=== PATIENT | female | born 1965 | race Caucasian/White ===

== ENCOUNTER 2016-11-02 18:06 | Inpatient (IN) | payer OTHER ==
[~2016-11-02] VITALS: Ht 154.9 cm; Wt 65.4 kg
[~2016-11-02 18:06] MED LIST: ASC500 PO; BUTA1CAP PO; CIPR500T4 PO; FER325 PO; GLIP5TAB13 PO; NIFE60TA60 PO; NITR-58 PO; ONDA4TAB35 PO; SITA100T8 PO
[2016-11-02 22:30] VITALS: BP 157/73; PULSE 77; RESP 18
[2016-11-02 22:42] VITALS: PULSE 80
[2016-11-02] MEDS ORDERED: hydrALAzine 20 MG INJ IV PRN (23:00)
[2016-11-02] MEDS ORDERED: ALBUTEROL/IPRATROPIUM (NEB) 3 ML AMP HHN PRN (23:00)
[2016-11-02] MEDS ORDERED: GLUCAGON 1 MG INJ IM PRN (23:30)
[2016-11-02] MEDS ORDERED: DEXTROSE 50% 50 ML SYRINGE IV PRN ×2 (23:30)
[2016-11-02] MEDS ORDERED: GLUCOSE GEL 15 GRAM TUBE PO PRN ×2 (23:30)
[2016-11-02] MEDS ORDERED: GLUCOSE GEL 15 GRAM TUBE BUCCAL PRN (23:30)
[2016-11-03] VITALS (14 sets, daily range): BP systolic 145–174; BP diastolic 70–90; PULSE 66–83; RESP 16–20
[2016-11-03 01:40] LABS: BASOPHILS % 0.3 % (0.0-2.0); EOSINOPHILS # 0.4 10^3/ul (0.0-0.5); EOSINOPHILS % 4.4 % (0.0-7.0); HEMOGLOBIN 8.2 g/dl (12.0-16.0); LYMPHOCYTES % 23.2 % (15.0-51.0); MEAN CORPUSCULAR HEMOGLOBIN 31.9 pg (29.0-33.0); MEAN CORPUSCULAR HGB CONC 32.9 g/dl (32.0-37.0); MEAN CORPUSCULAR VOLUME 97.2 fl (82.0-101.0); MEAN PLATELET VOLUME 9.7 fl (7.4-10.4); MONOCYTE # 0.8 10^3/ul (0.3-0.9); MONOCYTES % 9.7 % (0.0-11.0); NEUTROPHIL # 5.4 10^3/ul (1.6-7.5); NEUTROPHILS % 62.4 % (39.0-77.0); PLATELET COUNT 220 10^3/UL (140-440); RED BLOOD COUNT 2.57 10^6/ul (4.20-5.40); RED CELL DISTRIBUTION WIDTH 13.3 % (11.5-14.5); UNCORRECTED WBC 8.6 10^3/ul (4.8-10.8); WHITE BLOOD COUNT 8.6 10^3/ul (4.8-10.8)
[2016-11-03 01:43] LABS: POTASSIUM 4.9 mmol/L (3.5-5.1)
[2016-11-03 01:45] LABS: CREATININE 3.65 mg/dl (0.44-1.00)
[2016-11-03 01:46] LABS: ALBUMIN/GLOBULIN RATIO 0.9; CALCIUM 8.2 mg/dl (8.4-10.2); CHOL/HDL RATIO 2.7 RATIO; TOTAL PROTEIN 6.3 g/dl (6.1-8.1)
[2016-11-03 01:48] LABS: CONDITION 1
[2016-11-03] MEDS: FUROSEMIDE 20 MG INJ IV SCH (06:09)
[2016-11-03] MEDS: INSULIN ASPART [NOVOLOG] 3 ML PEN SC SCH ×4 (08:00→21:30)
--- NOTE | 2016-11-03 10:27 | HP ---
DATE OF ADMISSION: 11/02/2016 TIME SEEN: 2300. CHIEF COMPLAINT: Shortness of breath. HISTORY OF PRESENT ILLNESS: Patient presented at [facility] on 10/31/2016 and has be en treated for CHF exacerbation. The patient was transferred here for continued care because of ins urance reasons. The patient denied any chest pain, fever, chills, nausea, vomiting. When the patient presented here to the hospital, blood pressure 157/73, heart rate 77, respiratory r ate 18, temperature 99, oxygen saturation 97% on 5 liters oxygen. Laboratory value shows a hemoglobin of 8.2, creatinine 3.65, BUN 59, hemoglobin ____ . REVIEW OF SYSTEMS: A 12-point review of systems was performed and is negative except mentioned in th e HPI. PAST MEDICAL HISTORY: Per HPI. SOCIAL HISTORY: Denied a history of tobacco, alcohol or illicit drug use. ALLERGIES: NO KNOWN DRUG ALLERGIES. HOME MEDICATIONS: 1. Cipro. 2. Nitrofurantoin. 3. Ferrous sulfate. 4. Nifedipine. 5. Butalbital/acetaminophen/caffeine. 6. Zofran. 7. Glipizide. 8. Januvia. 9. Vitamin C. PHYSICAL EXAMINATION: VITAL SIGNS: Blood pressure 157/73, heart rate 97, respiratory rate 18, temperature 99, oxygen satu ration 97% on 5 liters. GENERAL: The patient appears sleepy but arousable with mild respiratory distress. HEENT: No obvious head deformity. Pupils are reactive to light. Extraocular muscles intact. CARDIOVASCULAR: Regular rate and rhythm. No extra sounds. LUNGS: Clear. LABORATORY DATA: Hemoglobin 8.2, BUN 59, creatinine 0.65, albumin 3. Otherwise, CBC and CMP are wi thin acceptable range. IMPRESSION: 1. Congestive heart failure exacerbation. 2. Chronic kidney disease. 3. Hypertension. 4. Diabetes. PLAN: Continue telemetry monitoring. We will continue diuresis with Lasix. Strict ins and outs an d follow up urine output closely. We will place a nephrology consult. We will obtain a 2D echo and a cardiology consult as well. She will be on insulin for diabetes. Will check A1c, fasting lipid panel in the morning. Will continue oxygen and will provide treatment with bronchodilators as neede d. Further workup and management per clinical course. Dictated By: LACHELLE ORTEGA/COLETTE Conf#: [id number] [facility]#: [id number]
[2016-11-03 13:22] LABS: IRON 29 ug/dl (35-150)
[2016-11-03 13:31] LABS: TOTAL IRON BINDING CAPACITY 200 ug/dl (241-421)
[2016-11-03 13:37] LABS: TROPONIN-I 0.333 ng/ml (0.00-0.12)
[2016-11-03 13:53] LABS: THYROID STIMULATING HORMONE 1.58 MIU/L (0.465-4.680)
--- NOTE | 2016-11-03 15:06 | PN ---
Date/Time of Note Date/Time of Note DATE: 11/03/16 TIME: 14:54 Assessment/Plan VTE Prophylaxis VTE Prophylaxis Intervention: heparin Lines/Catheters IV Catheter Type (from Nrs): Saline Lock Urinary Cath still in place: No Assessment/Plan Assessment/Plan 1. Congestive heart failure, hypertensive, r/o ischemia, follow up with Echo and cardiology consult 2. Hypertension, on procardia, add coreg 3. Chronic kidney disease, stage 4, follow up with BMP 4. Diabete mellitus, on ISS, chest HbA1c 5. Normocytic anemia, likely CKD related, follow up with CBC Subjective 24 Hr Interval Summary Free Text/Dictation less SOB today. No chest pain Exam/Review of Systems Vital Signs Vitals Vital Signs Date Time Temp Pulse Resp B/P Pulse Ox O2 Delivery O2 Flow Rate FiO2 11/03/16 12:38 74 11/03/16 12:11 99.7 18 174/80 96 11/03/16 09:15 Nasal Cannula 5.0 Intake and Output 11/02/16 11/02/16 11/03/16 15:00 23:00 07:00 Intake Total 300 ml Output Total 350 ml Balance -50 ml Exam Constitutional: alert, oriented, well developed Psych: nl mood/affect, no complaints Head: atraumatic, normocephalic Eyes: EOMI, PERRL, nl conjunctiva, nl lids ENMT: nl external ears & nose, nl lips & teeth, nl nasal mucosa & septum Neck: non-tender, supple Respiratory: clear to auscultation, normal air movement, No congested cough, No crackles/rales, No diminished breath sounds, No intercostal retraction, No labored breathing, No respirations, No tactile fremitus, No wheezing Cardiovascular: nl pulses, regular rate and rhythm, No S3, No S4, No bruits, No diastolic murmur, No edema, No gallop, No irregular rhythm, No jugular venous distention (JVD), No murmurs/extra sounds, No rub, No systolic murmur Gastrointestinal: nl liver, spleen, non-tender, soft, No ascites, No bowel sounds, No distended, No firm, No hepatomegaly, No mass , No rebound or guarding, No splenomegaly, No surgical scars, No tender Musculoskeletal: nl extremities to inspection Extremities: normal pulses, No calf tenderness, No clubbing, No cyanosis, No edema, No palpable cord, No pitting pedal edema, No tenderness Neurological: ORIGINATION SPECIALIST II-XII intact, nl mental status, nl speech, nl strength Skin: nl turgor, rash or lesions Lymph: nl lymph nodes Results Result Diagram: 11/03/16 0045 11/03/16 0045 Results 24 hrs Laboratory Tests Test 11/03/16 00:45 11/03/16 08:13 11/03/16 12:10 11/03/16 12:50 Alanine Aminotransferase (ALT/SGPT) 38 Albumin 3.0 L Albumin/Globulin Ratio 0.90 Alkaline Phosphatase 99 Anion Gap 17 H Aspartate Amino Transf (AST/SGOT) 29 Basophils # 0.0 Basophils % 0.3 Blood Urea Nitrogen 59 H Calcium Level 8.2 L Carbon Dioxide Level 22 Chloride Level 107 Cholesterol Level 144 Cholesterol/HDL Ratio 2.7 Creatinine 3.65 H Direct Bilirubin 0.00 Eosinophils # 0.4 Eosinophils % 4.4 Globulin 3.30 H Glucose Level 185 HDL Cholesterol 53 Hematocrit 25.0 L Hemoglobin 8.2 L Hemoglobin A1c 6.5 H Indirect Bilirubin 0.0 LDL Cholesterol, Calculated 70 Lymphocytes # 2.0 Lymphocytes % 23.2 Mean Corpuscular Hemoglobin 31.9 Mean Corpuscular Hemoglobin Concent 32.9 Mean Corpuscular Volume 97.2 Mean Platelet Volume 9.7 Monocytes # 0.8 Monocytes % 9.7 Neutrophils # 5.4 Neutrophils % 62.4 Nucleated Red Blood Cells # 0.0 Nucleated Red Blood Cells % 0.0 Platelet Count 220 # Potassium Level 4.9 Red Blood Count 2.57 #L Red Cell Distribution Width 13.3 Sodium Level 141 Total Bilirubin 0.0 L Total Protein 6.3 Triglycerides Level 107 White Blood Count 8.6 # Bedside Glucose 140 193 B-Type Natriuretic Peptide 32789 H Ferritin 213.0 Iron Level 29 L Percent Iron Saturation 15 L Thyroid Stimulating Hormone (TSH) 1.580 Total Iron Binding Capacity 200 L Troponin I 0.333 *H Medications Medications Current Medications Furosemide (Lasix) 20 mg DAILY@06 IV Last administered on 11/03/16t 06:09; Admin Dose 20 MG; Start 11/03/16 at 06:00 Acetaminophen (Tylenol Tab) 650 mg Q4H PRN PO PAIN AND OR ELEVATED TEMP; Start 11/02/16 at 23:00 Hydralazine HCl (Apresoline) 10 mg Q4H PRN IV ELEVATED SYSTOLIC BP Last administered on 11/03/16 12:48; Admin Dose 10 MG; Start 11/02/16 at 23:00 Miscellaneous Information 1 ea NOTE XX ; Start 11/02/16 at 23:30 Glucose (Glutose) 15 gm Q15M PRN PO DECREASED GLUCOSE; Start 11/02/16 at 23:30 Glucose (Glutose) 22.5 gm Q15M PRN PO DECREASED GLUCOSE; Start 11/02/16 at 23:30 Dextrose (D50w Syringe) 25 ml Q15M PRN IV DECREASED GLUCOSE; Start 11/02/16 at 23:30 Dextrose (D50w Syringe) 50 ml Q15M PRN IV DECREASED GLUCOSE; Start 11/02/16 at 23:30 Glucagon (Glucagen) 1 mg Q15M PRN IM DECREASED GLUCOSE; Start 11/02/16 at 23:30 Glucose (Glutose) 15 gm Q15M PRN BUCCAL DECREASED GLUCOSE; Start 11/02/16 at 23: 30 Clonidine (Catapres) 0.1 mg Q6H PRN PO SBP >160; Start 11/03/16 at 13:30 Nifedipine (Procardia Xl) 90 mg DAILY PO ; Start 11/03/16 at 14:30 BRIANA SALEH MD Nov 03, 2016 15:04
[2016-11-03] MEDS: NIFEdipine (XL) 90 MG TAB PO SCH (15:30)
--- NOTE | 2016-11-03 15:32 | RADRPT ---
PROCEDURE: XR Chest. CLINICAL INDICATION: Pleural effusion TECHNIQUE: Chest PA and lateral. COMPARISON: 01/26/2016 FINDINGS: The mediastinal structures are unremarkable. The heart is normal in size and configuration. The pu lmonary vascularity is normal. There is bibasilar subsegmental atelectasis. There are small to mod erate-sized bilateral pleural effusions. The axial skeleton is unremarkable. IMPRESSION: Bibasilar subsegmental atelectasis Small to moderate-sized bilateral pleural effusions RPTAT: HGDB .Maikol Morales MD, MD Date Time Electronically viewed and signed by .Maikol Morales MD, on 11/03/2016 15:32 .B/
[2016-11-03] MEDS: HEPARIN 5,000 UNIT/0.5 ML SYG SC SCH ×2 (15:36→21:29)
[2016-11-03] MEDS: ASPIRIN 325 MG TAB PO SCH (17:05)
--- NOTE | 2016-11-03 17:30 | RADRPT ---
Echocardiogram Report Patient Name: LORELEI SANDOVAL Gender: Female Date: 1965 Study Date: 03-Nov-2016 Family Caseworker: Zoraida Mendenhall [facility] Location: 5554 Ref. Physician: LACHELLE ABAD Quality: Good Procedures: Transthoracic echocardiogram with complete 2D, M-Mode, and doppler examination. Indications: Congestive Heart Failure. 2D/M Mode Doppler Measurement Value Normal Ranges Measurement Value Normal Ranges LVIDd 2D 4.9 3.5 - 5.6 cm AV Peak Larry 1.6 m/sec LVIDs 2D 2.9 2.1 - 4.1 cm AV Peak PG 11.0 mmHg FS 2D 40.5 % LVOT Peak Larry 1.2 m/sec LVPWd 2D 0.9 0.6 - 1.1 cm LVOT Peak PG 6.0 mmHg IVSd 2D 0.8 0.6 - 1.1 cm MV E Peak Larry 0.9 m/sec IVS/LVPW 2D 0.9 MV A Peak Larry 1.0 m/sec AoR Diam 2D 2.8 2.0 - 3.7 cm MV E/A 0.9 LA/Ao 2D 1 0 - 1 MV Decel Time 204 msec EDV 2D 121.0 cm3 MV E/A 0.9 ESV 2D 25.4 cm3 LA Dimen 2D 3.1 2.3 - 4.0 cm Findings Left Ventricle: Normal left ventricular cavity size. Normal left ventricular wall thickness. Mild global left ventricular systolic dysfunction. Ejection fraction is visually estimated at 45 %. Tissue Doppler/Mitral Doppler indices are consistent with impaired relaxation (Stage I diastolic dysfunction). Right Ventricle: Normal right ventricular size. Normal right ventricular systolic function. Left Atrium: The left atrium is normal in size. Right Atrium: The right atrium is normal in size. Mitral Valve: Mitral valve leaflets appear mildly thickened. Mild mitral annular calcification. Trace mitral regurgitation. Aortic Valve: Normal appearance of the aortic valve. No significant aortic stenosis or insufficiency. Tricuspid Valve: Normal appearance and function of the tricuspid valve with trace physiologic regurgitation. Normal right ventricular systolic pressure. Pericardium: Normal pericardium with no significant pericardial effusion. Left pleural effusion seen. Aorta: Normal aortic root. IVC: Normal size and normal respiratory collapse consistent with normal right atrial pressure. Conclusions 1.Normal left ventricular cavity size. Normal left ventricular wall thickness. Mild global left ventricular systolic dysfunction. Ejection fraction is visually estimated at 45 %. Tissue Doppler/Mitral Doppler indices are consistent with impaired relaxation (Stage I diastolic dysfunction). 2.Mitral valve leaflets appear mildly thickened. Mild mitral annular calcification. Trace mitral regurgitation. 3.Normal appearance and function of the tricuspid valve with trace physiologic regurgitation. Normal right ventricular systolic pressure. Electronically Signed By: Igor Patricio 03-Nov-2016 17:29:02 -0800 Patient Name: LORELEI SANDOVAL Study Date: 03-Nov-2016 [id number]
[2016-11-03 19:13] LABS: CK-MB 2.05 ng/ml (0.0-2.4)
[2016-11-03 19:24] LABS: TROPONIN-I 0.284 ng/ml (0.00-0.12)
[2016-11-04] VITALS (12 sets, daily range): BP systolic 116–136; BP diastolic 57–78; PULSE 60–74; RESP 16–18
[2016-11-04 01:33] LABS: CK-MB 1.51 ng/ml (0.0-2.4)
[2016-11-04 01:48] LABS: TROPONIN-I 0.326 ng/ml (0.00-0.12)
--- NOTE | 2016-11-04 03:37 | CONS ---
DATE OF ADMISSION: 11/02/2016 DATE OF CONSULTATION: 11/03/2016 REASON FOR CONSULTATION: Congestive heart failure exacerbation as well as positive troponin. REQUESTING PHYSICIAN: ____ from the hospitalist service. HISTORY OF PRESENT ILLNESS: Ms. Milner is a 51-year-old female with a history of hypertension, di abetes mellitus, chronic kidney disease, anemia who had initially presented to an outside hospital, [facility], 11/01/2016 with shortness of breath where she was diagnosed with congestive heart failure exacerbation. The patient underwent a 2D echo at outside hospital with the results reporte d as being 50% to 55%, ____ normal. The patient was treated with Lasix diuresis. No Corona inhibitors were started given renal failure and the patient has now been transferred to [facility] due to insurance reasons being capitated. PAST MEDICAL HISTORY: As above in HPI. MEDICATIONS CURRENTLY IN THE HOSPITAL: 1. Heparin 5000 subQ b.i.d. 2. Carvedilol 6.25 mg p.o. b.i.d. 3. Procardia-XL 90 mg daily. 4. Insulin sliding scale. 5. Lasix 20 mg IV daily. 6. P.r.n. DuoNebs. 7. P.r.n. Tylenol. 8. P.r.n. hydralazine. ALLERGIES: NO KNOWN DRUG ALLERGIES. SOCIAL HISTORY: No tobacco, ETOH or illicit drug use. FAMILY HISTORY: No history of sudden cardiac or early CAD. REVIEW OF SYSTEMS: As above in HPI. CONSTITUTIONAL: No fevers, chills. PULMONARY: Shortness of breath. CARDIOVASCULAR: No current chest pain. GASTROINTESTINAL: No vomiting. GENITOURINARY: No hematuria. MUSCULOSKELETAL: Degenerative joint disease. PSYCHIATRIC: No documented psychiatric history. NEUROLOGICAL: No documented history of CVA. ENDOCRINE: Diabetes mellitus. PHYSICAL EXAMINATION: VITAL SIGNS: Temperature of 98.1, blood pressure 160/72, pulse 81, respiratory rate 20, satting 96% on 2 liters. GENERAL: The patient is alert, awake, complaining of mild shortness of breath. NECK: JVP approximately 9 cm of water. CHEST: Fair movement throughout with mildly decreased breath sounds at bases bilaterally. HEART: Regular rate and rhythm. Normal S1, S2, I/ systolic murmur, nondisplaced PMI. ABDOMEN: Positive bowel sounds, soft. EXTREMITIES: No pitting edema, 1+ pulses bilateral posterior tibial. LABORATORIES: As above in [facility], with most recent from today, a troponin of 0.333, mildly positive. BNP of 11,500. IMAGING STUDIES: As above in HPI. No further imaging studies for my review at this time. ECG: No electrocardiograms for my review at this time. The patient subsequently has been maintained on baseline beta blockers, calcium channel jose. Th e patient here is being treated with daily Lasix and baseline antihypertensives. IMPRESSION: 1. Congestive heart failure exacerbation, diastolic, acute on chronic by most recent echo at [facility]. 2. Hypertension, uncontrolled. 3. Positive troponin, assess significance, assess for true acute coronary syndrome. 4. Renal failure. 5. Anemia. 6. Shortness of breath secondary to #1. 7. Diabetes mellitus. RECOMMENDATIONS: 1. At this time would maintain the patient on telemetry monitoring to follow rhythm and rate contro l closely. 2. Would continue to trend the patient's cardiac enzymes to assess for any significant ongoing card iac damage. 3. Start the patient on aspirin in the setting of positive troponins, continue the patient's hepari n 5000 subQ b.i.d. at this time. 4. Continue the patient's baseline antihypertensives with Carvedilol, Procardia with up titration t o improve overall systolic blood pressure control with probable need for additional antihypertensive s. 5. Continue the patient's Lasix diuresis, following strict I's and O's and creatinine to grade diur esis closely with possible need to up titrate the dose of Lasix to get an adequate response. 6. Check a fasting lipid panel for general risk stratification and initiate lipid-lowering medicati on as necessary. 7. Continue to check serial EKGs to assess for any significant ongoing changes. Thank you for allowing me to take part in the care of this patient. I will continue to follow along very closely with you with further recommendations to be made as the patient progresses through her inpatient hospital clinical course. Dictated By: PAUL NINO/COLETTE Conf#: [id number] DID#: [id number] CC: PAUL WALKER MD; ; MIKEY GLORIA MD;*EndCC*
[2016-11-04] MEDS: FUROSEMIDE 20 MG INJ IV SCH (05:33)
[2016-11-04] MEDS: INSULIN ASPART [NOVOLOG] 3 ML PEN SC SCH ×4 (07:53→20:45)
[2016-11-04] MEDS: NIFEdipine (XL) 90 MG TAB PO SCH (08:17)
[2016-11-04] MEDS: ASPIRIN 325 MG TAB PO SCH (08:18)
[2016-11-04] MEDS: HEPARIN 5,000 UNIT/0.5 ML SYG SC SCH ×2 (08:20→20:43)
[2016-11-04 08:53] LABS: CHOL/HDL RATIO 2.8 RATIO
--- NOTE | 2016-11-04 10:45 | PN ---
Date/Time of Note Date/Time of Note DATE: 11/04/16 TIME: 10:36 Assessment/Plan VTE Prophylaxis VTE Prophylaxis Intervention: heparin Lines/Catheters IV Catheter Type (from Nrs): Saline Lock Urinary Cath still in place: Yes Reason Cath still needed: other (indicate) Assessment/Plan Assessment/Plan PROBLEMS: Congestive heart failure, hypertensive NSTEMI versus Troponin leak Hypertension: controlled Acute on Chronic kidney disease, stage 4 Diabetes mellitus type 2 Normocytic anemia, likely CKD related + Iron deficiency PLAN: Continue gentle diuresis with lasix IV 20mg Will get Nephrology to follow and assist with diuresis in the setting of CKD Continue ASA , BB, add statin and ?Heparin drip No ACEi or ARB for renal failure F/u cardiology plan, re: Cath? versus med mgt in the setting of elevated troponins Continue SSI / add low dose Lantus / Glipizide and Januvia on hold Replete Iron Supportive care Subjective 24 Hr Interval Summary Free Text/Dictation Patient seen and examined. still feeling lethargic Exam/Review of Systems Vital Signs Vitals Vital Signs Date Time Temp Pulse Resp B/P Pulse Ox O2 Delivery O2 Flow Rate FiO2 11/04/16 08:06 73 11/04/16 08:00 Nasal Cannula 2.0 11/04/16 07:53 98.1 17 124/58 96 Intake and Output 11/03/16 11/03/16 11/04/16 15:00 23:00 07:00 Intake Total 850 ml 240 ml Output Total 1800 ml 600 ml Balance -950 ml -360 ml Exam Constitutional: alert, oriented Head: normocephalic Eyes: PERRL ENMT: mucosa pink and moist Neck: supple Respiratory: crackles/rales, diminished breath sounds Cardiovascular: murmurs/extra sounds, regular rate and rhythm Musculoskeletal: nl extremities to inspection Results Result Diagram: 11/03/16 0045 11/03/16 0045 Results 24 hrs Laboratory Tests Test 11/03/16 12:10 11/03/16 12:50 11/03/16 16:37 11/03/16 18:18 Bedside Glucose 193 194 B-Type Natriuretic Peptide 75745 H Ferritin 213.0 Iron Level 29 L Percent Iron Saturation 15 L Thyroid Stimulating Hormone (TSH) 1.580 Total Iron Binding Capacity 200 L Troponin I 0.333 *H 0.284 *H Creatine Kinase 225 H Creatine Kinase Index 0.9 Creatinine Kinase MB (Mass) 2.05 Test 11/03/16 21:22 11/04/16 00:53 11/04/16 07:01 11/04/16 07:41 Bedside Glucose 199 128 Creatine Kinase 177 Creatine Kinase Index 0.9 Creatinine Kinase MB (Mass) 1.51 Troponin I 0.326 *H Cholesterol Level 157 Cholesterol/HDL Ratio 2.8 HDL Cholesterol 56 Hemoglobin A1c 6.5 H LDL Cholesterol, Calculated 76 Triglycerides Level 124 Medications Medications Current Medications Furosemide (Lasix) 20 mg DAILY@06 IV Last administered on 11/04/16 05:33; Admin Dose 20 MG; Start 11/03/16 at 06:00 Acetaminophen (Tylenol Tab) 650 mg Q4H PRN PO PAIN AND OR ELEVATED TEMP; Start 11/02/16 at 23:00 Hydralazine HCl (Apresoline) 10 mg Q4H PRN IV ELEVATED SYSTOLIC BP Last administered on 11/03/16 12:48; Admin Dose 10 MG; Start 11/02/16 at 23:00 Miscellaneous Information 1 ea NOTE XX ; Start 11/02/16 at 23:30 Glucose (Glutose) 15 gm Q15M PRN PO DECREASED GLUCOSE; Start 11/02/16 at 23:30 Glucose (Glutose) 22.5 gm Q15M PRN PO DECREASED GLUCOSE; Start 11/02/16 at 23:30 Dextrose (D50w Syringe) 25 ml Q15M PRN IV DECREASED GLUCOSE; Start 11/02/16 at 23:30 Dextrose (D50w Syringe) 50 ml Q15M PRN IV DECREASED GLUCOSE; Start 11/02/16 at 23:30 Glucagon (Glucagen) 1 mg Q15M PRN IM DECREASED GLUCOSE; Start 11/02/16 at 23:30 Glucose (Glutose) 15 gm Q15M PRN BUCCAL DECREASED GLUCOSE; Start 11/02/16 at 23: 30 Clonidine (Catapres) 0.1 mg Q6H PRN PO SBP >160; Start 11/03/16 at 13:30 Nifedipine (Procardia Xl) 90 mg DAILY PO Last administered on 11/04/16 08:17; Admin Dose 90 MG; Start 11/03/16 at 14:30 Heparin Sodium (Porcine) (Heparin (5000 Units/0.5 ml)) 5,000 unit BID SC Last administered on 11/04/16 08:20; Admin Dose 5,000 UNIT; Start 11/03/16 at 15:00 Carvedilol (Coreg) 12.5 mg BID PO Last administered on 11/04/16 08:18; Admin Dose 12.5 MG; Start 11/03/16 at 21:00 Hydralazine HCl (Apresoline) 25 mg Q8 PO Last administered on 11/04/16 05:33; Admin Dose 25 MG; Start 11/03/16 at 22:00 Aspirin (Aspirin) 325 mg DAILY PO Last administered on 11/04/16 08:18; Admin Dose 325 MG; Start 11/03/16 at 17:00 PRASHANTH HOLDER Nov 04, 2016 10:45
[2016-11-04] MEDS ORDERED: HEPARIN 1000 UNITS/ML 10 ML INJ IV PRN (11:00)
[2016-11-04] MEDS ORDERED: HEPARIN 25000 UNITS/250 ML 250 ML IV SCH (11:00)
[2016-11-04 11:39] LABS: INR 1.02; PROTIME 13.4 Sec (12.2-14.2)
[2016-11-04 11:40] LABS: PARTIAL THROMBOPLASTIN TIME 36.1 Sec (25.0-35.0)
[2016-11-04] MEDS: SOD FERRIC GLUC COMPLX 125 MG in SOD CHLORIDE 0.9% 100 ML IVPB SCH (11:50)
--- NOTE | 2016-11-04 12:50 | CONS ---
DATE OF ADMISSION: 11/02/2016 DATE OF CONSULTATION: 11/04/2016 TYPE OF CONSULTATION: Nephrology. REFERRING PHYSICIAN: Dr. Yanelis Smith REASON FOR CONSULTATION: Acute kidney injury with CHF exacerbation. HISTORY OF PRESENT ILLNESS: This is a 51-year-old female who has a past medical history of hypertension, hyperlipidemia, a history of CHF, who presented to [facility] in late October of 2016 and has been treated for CHF exacerbation. The patient was transferred to [facility] due to his insurance reasons. The patient had a creatinine of 3.65, BUN of 59. She has been on the 5 liters oxygen, saturating at 97%. Other vitals were stable. Cardiology has been consulted for CHF exacerbation and a positive troponin. Today the patient is noted to have a creatinine of 3.6, BUN of 59. She is also very iron deficiency, with an iron saturation of 15% and an iron level of 29. The patient is currently on IV Lasix , diuresis with 20 mg IV daily, and renal has been consulted because of having acute renal failure. Currently she is on a heparin drip for a possible non-ST elevation myocardial infarction. REVIEW OF SYSTEMS: Positive for shortness of breath. All other 12-point review of systems has been obtained and is negative, except what is mentioned in the history of present illness. PAST MEDICAL HISTORY: Hypertension, CHF, diabetes mellitus. Unclear history of chronic kidney disease. PAST SURGICAL HISTORY: None. SOCIAL HISTORY: No smoking, alcohol or recreational drug use. FAMILY HISTORY: No family history of kidney disease or dialysis in the family. At the time of my evaluation they also deny any family history of stroke or coronary artery disease. PHYSICAL EXAMINATION: VITAL SIGNS: Temperature 98.5, heart rate 63, respirations 18, blood pressure 133/66, saturation 96% on 2 liters nasal cannula. GENERAL: Awake, alert. In mild distress due to the shortness of breath. HEENT: Normal. No jugular venous distention. NECK: Supple. HEART: S1, S2, with a regular rhythm. No murmur. LUNGS: Bibasilar crackles present, with decreased breath sounds at both lung bases. ABDOMEN: Soft, nontender, nondistended. Bowel sounds are present. EXTREMITIES: No clubbing, cyanosis, or edema. NEUROLOGICAL: Nonfocal, intact. PSYCHIATRIC: Appropriate affect and mood. LABORATORY DATA/DIAGNOSTIC IMAGIN. Sodium 141, potassium 4.9, chloride 107, bicarbonate 22, BUN 59, creatinine 3.6, hemoglobin 6.5, calcium 8.2. Iron saturation 15%, with an iron level of 29 and a TIBC of 200. The patient has a positive troponin of 0.284. 2. PT 13.4, PTT 36.1, INR 1.02. 3. WBC 8.6, hemoglobin 8.2, platelets 220. 4. Chest x-ray shows bilateral basilar atelectasis with moderate sized pleural effusions bilaterally. IMPRESSION: This is a 51-year-old female with: 1. Acute kidney injury versus acute kidney injury on chronic kidney disease secondary to cardiorenal syndrome. 2. Possible history of chronic kidney disease secondary to diabetic nephropathy , unknown stage and unknown creatinine before. 3. History of hypertension. 4. History of diabetes mellitus. 5. History of previous CHF, possibly systolic and diastolic. PLAN: 1. Thank you, Dr. Yanelis Smith, for this consultation. I will order the patient's urine studies, including a urine sodium, urine protein, urine creatinine, urine eosinophils. 2. I will also order a uric acid, CK total, hepatitis panel and HIV. 3. Renal ultrasound has been ordered to assess the kidney size and echogenicity and to rule out hydronephrosis. 4. Continue the current diuresis with Lasix 20 mg IV daily. Cardiology has been following the patient. The patient is on aspirin and Coreg for her non-ST elevation myocardial infarction. 5. I will avoid any TERA inhibitors or aldosterone receptor blockers due to the creatinine of 3.65. Will continue to monitor the patient's diuresis, urine output and volume status, and decide for a future plan of TERA inhibitor at the time when it is appropriate and improving creatinine. 6. I will order CT chest without contrast to assess for pleural effusion and pulmonary edema 6. The patient is currently seen on the telemetry floor and she will be followed up along with the primary care service and cardiology service, Dr. Patricio. Dictated By: TIM MELCHOR MD, KP/COLETTE Conf#: [id number] DID#: [id number] CARMEN
--- NOTE | 2016-11-04 15:38 | CONS ---
Date/Time of Note Date/Time of Note DATE: 11/04/16 TIME: 15:33 Assessment/Plan Assessment/Plan Additional Assessment/Plan 1. Congestive heart failure exacerbation with Ef 45%. 2. Hypertension 3. CKD 4. Anemia. 5. Diabetes mellitus. 6. Dyslipidemia Heart failure clinically compensated Continue Nifedipine and Coreg Continue Insulin Continue Low dose Lasix Avoid TERA-I/ ARBs Avoid Volume overload Chest CT and Renal Ultrasound pending Consultation Date/Type/Reason Admit Date/Time Nov 02, 2016 at 22:06 Psychological: nl mood/affect, no complaints Social History Smoking Status: Never smoker Exam/Review of Systems Vital Signs Vitals Vital Signs Date Time Temp Pulse Resp B/P Pulse Ox O2 Delivery O2 Flow Rate FiO2 11/04/16 12:05 66 11/04/16 11:51 98.5 18 133/63 96 11/04/16 08:00 Nasal Cannula 2.0 Intake and Output 11/03/16 11/03/16 11/04/16 15:00 23:00 07:00 Intake Total 850 ml 240 ml Output Total 1800 ml 600 ml Balance -950 ml -360 ml Exam Constitutional: alert, oriented Head: atraumatic, normocephalic Respiratory: diminished breath sounds Cardiovascular: regular rate and rhythm Gastrointestinal: nl liver, spleen, non-tender, soft Extremities: normal pulses Results Result Diagram: 11/03/16 0045 11/03/16 0045 Results 24 hrs Laboratory Tests Test 11/03/16 16:37 11/03/16 18:18 11/03/16 21:22 11/04/16 00:53 Bedside Glucose 194 199 Creatine Kinase 225 H 177 Creatine Kinase Index 0.9 0.9 Creatinine Kinase MB (Mass) 2.05 1.51 Troponin I 0.284 *H 0.326 *H Test 11/04/16 07:01 11/04/16 07:41 11/04/16 11:12 11/04/16 11:28 Cholesterol Level 157 Cholesterol/HDL Ratio 2.8 HDL Cholesterol 56 Hemoglobin A1c 6.5 H LDL Cholesterol, Calculated 76 Triglycerides Level 124 Bedside Glucose 128 238 H Activated Partial Thromboplast Time 36.1 H INR International Normalized Ratio 1.02 Prothrombin Time 13.4 Prothrombin Time Ratio 1.0 Test 11/04/16 13:00 Urine Random Creatinine 51.75 Urine Random Sodium 87 Urine Total Protein Medications Medications Current Medications Furosemide (Lasix) 20 mg DAILY@06 IV Last administered on 11/04/16 05:33; Admin Dose 20 MG; Start 11/03/16 at 06:00 Acetaminophen (Tylenol Tab) 650 mg Q4H PRN PO PAIN AND OR ELEVATED TEMP; Start 11/02/16 at 23:00 Hydralazine HCl (Apresoline) 10 mg Q4H PRN IV ELEVATED SYSTOLIC BP Last administered on 11/03/16 12:48; Admin Dose 10 MG; Start 11/02/16 at 23:00 Miscellaneous Information 1 ea NOTE XX ; Start 11/02/16 at 23:30 Glucose (Glutose) 15 gm Q15M PRN PO DECREASED GLUCOSE; Start 11/02/16 at 23:30 Glucose (Glutose) 22.5 gm Q15M PRN PO DECREASED GLUCOSE; Start 11/02/16 at 23:30 Dextrose (D50w Syringe) 25 ml Q15M PRN IV DECREASED GLUCOSE; Start 11/02/16 at 23:30 Dextrose (D50w Syringe) 50 ml Q15M PRN IV DECREASED GLUCOSE; Start 11/02/16 at 23:30 Glucagon (Glucagen) 1 mg Q15M PRN IM DECREASED GLUCOSE; Start 11/02/16 at 23:30 Glucose (Glutose) 15 gm Q15M PRN BUCCAL DECREASED GLUCOSE; Start 11/02/16 at 23: 30 Clonidine (Catapres) 0.1 mg Q6H PRN PO SBP >160; Start 11/03/16 at 13:30 Nifedipine (Procardia Xl) 90 mg DAILY PO Last administered on 11/04/16 08:17; Admin Dose 90 MG; Start 11/03/16 at 14:30 Carvedilol (Coreg) 12.5 mg BID PO Last administered on 11/04/16 08:18; Admin Dose 12.5 MG; Start 11/03/16 at 21:00 Hydralazine HCl (Apresoline) 25 mg Q8 PO Last administered on 11/04/16 05:33; Admin Dose 25 MG; Start 11/03/16 at 22:00 Aspirin (Aspirin) 325 mg DAILY PO Last administered on 11/04/16 08:18; Admin Dose 325 MG; Start 11/03/16 at 17:00 Ascorbic Acid 500 mg 500 mg BID PO ; Start 11/04/16 at 21:00 Ferric Sodium Gluconate Complex/ Sodium Chloride (Ferrlecit/NS) 110 ml @ 100 mls/hr Q24H IVPB Last administered on 11/04/16t 11:50; Admin Dose 100 MLS/HR; Start 11/04/16 at 12:00; Stop 11/06/16 at 13:05 Atorvastatin Calcium (Lipitor) 40 mg HS PO ; Start 11/04/16 at 21:00; Status MARCELINO MCGUIRE M.D. Nov 04, 2016 15:38
--- NOTE | 2016-11-04 17:23 | RADRPT ---
PROCEDURE: US Retroperitoneum. CLINICAL INDICATION: Elevated BUN and creatinine. Rule out hydronephrosis. TECHNIQUE: Multiple sonographic images of the retroperitoneum were obtained. Evaluation of the ki dneys and bladder was performed as well as visualization of the aorta and other retroperitoneal stru ctures using a curved array transducer. The images were reviewed on a PACS workstation. COMPARISON: No prior studies are available for comparison. FINDINGS: The kidneys are well visualized. The right kidney measures 10.3 cm in length. 1.4 cm shadowing stone in the lower pole of right kidney. No evidence of hydronephrosis or renal mass. The left kidney measures 9.0 cm in length. There is mild left hydronephrosis. No evidence of renal mass or calculi. The aorta and IVC are of normal caliber. There is no evidence for aortic aneurysm. The bladder is decompressed by Diaz catheter and is not well evaluated. IMPRESSION: 1. 1.4 cm nonobstructing calculus in the lower pole of the right kidney. 2. Mild left hydronephrosis, of indeterminate etiology. 3. Incomplete evaluation of the urinary bladder due to Diaz catheter with completely decompressed state. RPTAT: QQ .Power Jones MD, MD Date Time Electronically viewed and signed by .Power Jones MD, on 11/04/2016 17:23 .Sj/
[2016-11-04] MEDS: ATORVASTATIN 40 MG TAB PO SCH (20:41)
[2016-11-04] MEDS: ASCORBIC ACID 500 MG TAB PO SCH (20:41)
--- NOTE | 2016-11-04 21:10 | RADRPT ---
V[place] Rate: 65 bpm RR Interval: 0 msec [place] Interval: 150 msec QRS Duration: 84 msec QT Interval: 412 msec QTC Interval: 428 msec P-R-T [place]: 65 - 45 - 68 degrees Normal sinus rhythm Normal ECG Electronically Signed By: Varghese Wagoner [id number]
[2016-11-05] VITALS (12 sets, daily range): BP systolic 116–141; BP diastolic 58–67; PULSE 61–70; RESP 16–20
--- NOTE | 2016-11-05 01:31 | RADRPT ---
PROCEDURE: CT Chest without contrast. CLINICAL INDICATION: Dyspnea and pulmonary edema. TECHNIQUE: CT scan of the chest without contrast was performed on a multidetector high-resolution CT scanner. Coronal and sagittal reformatted images were obtained from the axial source images. The total exam CTDI equals 8.83 mGy and the total exam DLP equals 337.40 mGy-cm. COMPARISON: Plain film chest series dated 11/03/2016. FINDINGS: Moderate bilateral pleural effusions, right greater than left with partial collapse the bilateral lo wer lobes. The heart is not enlarged, but there is a small amount of pericardial fluid, otherwise n onspecific. The mediastinum is unremarkable without evidence for mass or lymphadenopathy. The vascular structur es of the mediastinum are normal in course and caliber. Aortic vascular calcifications and coronary artery calcifications are present. The heart size is normal without evidence for pericardial thick ening or effusion. The axillary regions, subpectoral regions, and supraclavicular regions are all unremarkable. The hart rrounding chest wall is unremarkable. Imaging obtained through the upper abdomen reveals no acute a bnormality. The surrounding osseous structures are remarkable for degenerative spondylosis of the s pine. No osteolytic or osteoblastic lesion is detected. IMPRESSION: 1. Moderate pleural effusions with partial collapse of the bilateral lower lobes. 2. Nonspecific mild pericardial fluid. RPTAT: [facility] Physician Luigi Date Time Electronically viewed and signed by Physician Luigi on 11/05/2016 01:30 RS/
[2016-11-05] MEDS: FUROSEMIDE 20 MG INJ IV SCH (05:26)
[2016-11-05 06:23] LABS: HAAIG REFLEX REFLEX FILED
[2016-11-05 07:02] LABS: BASOPHILS % 0.6 % (0.0-2.0); EOSINOPHILS # 0.4 10^3/ul (0.0-0.5); EOSINOPHILS % 6.2 % (0.0-7.0); HEMATOCRIT 26.3 % (37.0-47.0); HEMOGLOBIN 8.8 g/dl (12.0-16.0); LYMPHOCYTES # 2.1 10^3/ul (0.8-2.9); LYMPHOCYTES % 31.1 % (15.0-51.0); MEAN CORPUSCULAR HEMOGLOBIN 32.2 pg (29.0-33.0); MEAN CORPUSCULAR HGB CONC 33.6 g/dl (32.0-37.0); MEAN CORPUSCULAR VOLUME 96.1 fl (82.0-101.0); MEAN PLATELET VOLUME 9.6 fl (7.4-10.4); MONOCYTE # 0.6 10^3/ul (0.3-0.9); MONOCYTES % 9.2 % (0.0-11.0); NEUTROPHIL # 3.6 10^3/ul (1.6-7.5); NEUTROPHILS % 52.9 % (39.0-77.0); PLATELET COUNT 226 10^3/UL (140-440); RED BLOOD COUNT 2.73 10^6/ul (4.20-5.40); UNCORRECTED WBC 6.8 10^3/ul (4.8-10.8); WHITE BLOOD COUNT 6.8 10^3/ul (4.8-10.8)
[2016-11-05 07:07] LABS: CONDITION 1
[2016-11-05 07:12] LABS: POTASSIUM 4.6 mmol/L (3.5-5.1)
[2016-11-05 07:15] LABS: CALCIUM 8.7 mg/dl (8.4-10.2); CREATININE 3.88 mg/dl (0.44-1.00)
[2016-11-05 07:53] LABS: CREATINE KINASE 103 IU/L (23-200); URIC ACID 8.9 mg/dl (3.1-7.9)
[2016-11-05] MEDS: ASCORBIC ACID 500 MG TAB PO SCH ×2 (08:18→21:02)
[2016-11-05] MEDS: ASPIRIN 325 MG TAB PO SCH (08:19)
[2016-11-05] MEDS: INSULIN ASPART [NOVOLOG] 3 ML PEN SC SCH ×4 (08:23→21:04)
[2016-11-05] MEDS: HEPARIN 5,000 UNIT/0.5 ML SYG SC SCH ×2 (08:24→21:04)
[2016-11-05 08:25] LABS: HEPATITIS B CORE ANTIBODY NEGATIVE (NEGATIVE)
[2016-11-05] MEDS ORDERED: ALBUMIN HUMAN 25% 50 ML IV ONE (10:00)
[2016-11-05] MEDS: ALLOPURINOL 100 MG TAB PO SCH (10:53)
[2016-11-05] MEDS: NIFEdipine (XL) 90 MG TAB PO SCH (10:54)
--- NOTE | 2016-11-05 11:34 | CONS ---
Date/Time of Note Date/Time of Note DATE: 11/05/16 TIME: 11:28 Assessment/Plan Assessment/Plan Additional Assessment/Plan 1. Acute kidney injury versus acute kidney injury on chronic kidney disease IV secondary to cardiorenal syndrome. 2. Possible history of chronic kidney disease stage IV secondary to diabetic nephropathy. 3. History of hypertension. 4. History of diabetes mellitus. 5. History of previous CHF, possibly systolic and diastolic. 6. Right kidney nephrolithiasis 1.4cm Nonobstrucing calculus in lower pole of right kidney 7. mild left hydronephrosis 8. Hyperuricemia with uric acid 8.9 PLAN: pt breathing better, CT chest showed moderate pleural effusion bilaterally with lower lobe lung collpase, made good urine, US showed right kidney lower pole 1.3cm nonobstructing renal calcusus, with Mild left hydronephrosis her renal function worsening, made good urine output with IV lasix, ECHO showed EF 45% with stage I diastolic dysfunction will stop lasix for today to avoid any overdiuresis and monitor renal funciton tomorrow AM Give one dose IV albumin Start allopurinol for hyperuricemia, uric acid 8.9 Her Urine eosinophils showed 2%- with normal CBC differential- still within higher normal range- will monitor her for interstitial nephritis HIV, hepatitis panel, CK total normal, will follow up Consultation Date/Type/Reason Admit Date/Time Nov 02, 2016 at 22:06 Initial Consult Date Type of Consultation: NEPHROLOGY Reason for Consultation DARRIUS on CKD, worsenign renal failure with CHF Referring Provider: PRASHANTH HOLDER 24 HR Interval Summary Free Text/Dictation pt breathing better, CT chest showed modearte pleural effusion bilateally with lung collpase, made good urine, US showed nonobstructing renal calcusus, with Mild hydronephrosis Exam/Review of Systems Vital Signs Vitals Vital Signs Date Time Temp Pulse Resp B/P Pulse Ox O2 Delivery O2 Flow Rate FiO2 11/05/16 08:09 61 11/05/16 07:57 98.3 20 126/62 99 11/05/16 01:22 2.0 11/04/16 21:54 Nasal Cannula Intake and Output 11/04/16 11/04/16 11/05/16 15:00 23:00 07:00 Intake Total 950 ml 300 ml Output Total 1200 ml 650 ml Balance -250 ml -350 ml Exam GENERAL: Awake, alert. In mild distress due to the shortness of breath. HEENT: Normal. No jugular venous distention. NECK: Supple. HEART: S1, S2, with a regular rhythm. No murmur. LUNGS: Bibasilar crackles present, with decreased breath sounds at both lung bases. ABDOMEN: Soft, nontender, nondistended. Bowel sounds are present. EXTREMITIES: No clubbing, cyanosis, or edema. NEUROLOGICAL: Nonfocal, intact. PSYCHIATRIC: Appropriate affect and mood. Results Result Diagram: 11/05/16 0545 11/05/16 0545 Results 24 hrs Laboratory Tests Test 11/04/16 13:00 11/04/16 17:08 11/04/16 20:36 11/05/16 03:19 Urine Eosinophils % 2.0 H Urine Random Creatinine 51.75 Urine Random Sodium 87 Bedside Glucose 166 194 203 Test 11/05/16 05:45 11/05/16 07:53 Anion Gap 18 H Basophils # 0.0 Basophils % 0.6 Blood Urea Nitrogen 76 H Calcium Level 8.7 Carbon Dioxide Level 23 Chloride Level 105 Creatine Kinase 103 Creatinine 3.88 H Eosinophils # 0.4 Eosinophils % 6.2 Glucose Level 124 HIV (1&2) Antibody NEGATIVE Hematocrit 26.3 L Hemoglobin 8.8 L Hepatitis B Core Total Antibody NEGATIVE Hepatitis B Surface Antigen NEGATIVE Hepatitis C Antibody NEGATIVE Lymphocytes # 2.1 Lymphocytes % 31.1 Mean Corpuscular Hemoglobin 32.2 Mean Corpuscular Hemoglobin Concent 33.6 Mean Corpuscular Volume 96.1 Mean Platelet Volume 9.6 Monocytes # 0.6 Monocytes % 9.2 Neutrophils # 3.6 Neutrophils % 52.9 Nucleated Red Blood Cells # 0.0 Nucleated Red Blood Cells % 0.0 Platelet Count 226 Potassium Level 4.6 Red Blood Count 2.73 L Red Cell Distribution Width 13.0 Sodium Level 141 Uric Acid 8.9 H White Blood Count 6.8 # Bedside Glucose 143 Medications Medications Current Medications Acetaminophen (Tylenol Tab) 650 mg Q4H PRN PO PAIN AND OR ELEVATED TEMP; Start 11/02/16 at 23:00 Hydralazine HCl (Apresoline) 10 mg Q4H PRN IV ELEVATED SYSTOLIC BP Last administered on 11/03/16 12:48; Admin Dose 10 MG; Start 11/02/16 at 23:00 Miscellaneous Information 1 ea NOTE XX ; Start 11/02/16 at 23:30 Glucose (Glutose) 15 gm Q15M PRN PO DECREASED GLUCOSE; Start 11/02/16 at 23:30 Glucose (Glutose) 22.5 gm Q15M PRN PO DECREASED GLUCOSE; Start 11/02/16 at 23:30 Dextrose (D50w Syringe) 25 ml Q15M PRN IV DECREASED GLUCOSE; Start 11/02/16 at 23:30 Dextrose (D50w Syringe) 50 ml Q15M PRN IV DECREASED GLUCOSE; Start 11/02/16 at 23:30 Glucagon (Glucagen) 1 mg Q15M PRN IM DECREASED GLUCOSE; Start 11/02/16 at 23:30 Glucose (Glutose) 15 gm Q15M PRN BUCCAL DECREASED GLUCOSE; Start 11/02/16 at 23: 30 Clonidine (Catapres) 0.1 mg Q6H PRN PO SBP >160; Start 11/03/16 at 13:30 Nifedipine (Procardia Xl) 90 mg DAILY PO Last administered on 11/04/16 08:17; Admin Dose 90 MG; Start 11/03/16 at 14:30 Carvedilol (Coreg) 12.5 mg BID PO Last administered on 11/05/16 08:19; Admin Dose 12.5 MG; Start 11/03/16 at 21:00 Hydralazine HCl (Apresoline) 25 mg Q8 PO Last administered on 11/05/16 05:26; Admin Dose 25 MG; Start 11/03/16 at 22:00 Aspirin (Aspirin) 325 mg DAILY PO Last administered on 11/05/16 08:19; Admin Dose 325 MG; Start 11/03/16 at 17:00 Ascorbic Acid 500 mg 500 mg BID PO Last administered on 11/05/16 08:18; Admin Dose 500 MG; Start 11/04/16 at 21:00 Ferric Sodium Gluconate Complex/ Sodium Chloride (Ferrlecit/NS) 110 ml @ 100 mls/hr Q24H IVPB Last administered on 11/04/16 11:50; Admin Dose 100 MLS/HR; Start 11/04/16 at 12:00; Stop 11/06/16 at 13:05 Atorvastatin Calcium (Lipitor) 40 mg HS PO Last administered on 2/4/17at 20:41 ; Admin Dose 40 MG; Start 11/04/16 at 21:00 Heparin Sodium (Porcine) (Heparin (5000 Units/0.5 ml)) 5,000 unit BID SC Last administered on 11/05/16t 08:24; Admin Dose 5,000 UNIT; Start 11/04/16 at 21:00 TIM MELCHOR MD Nov 05, 2016 11:34
[2016-11-05 11:59] LABS: AADO2 Arterial 21.3 mmHg (7.0-24.0); Allen Test ACCEPTAB; Arterial Base Excess -1.1 mmol/L (-3.0-3); Arterial COHb 0.3 % (0.0-3.0); Arterial Fraction of Oxyhgb 92.1 % (93.0-99.0); Arterial HCO3 24.8 mmol/L (22.0-26.0); Arterial MetHb 0.2 % (0.0-1.5); Arterial Total Hemglobin 9.6 g/dl (12.0-18.0); MODE ROOM AIR
[2016-11-05] MEDS: SOD FERRIC GLUC COMPLX 125 MG in SOD CHLORIDE 0.9% 100 ML IVPB SCH (11:59)
--- NOTE | 2016-11-05 18:41 | PN ---
Date/Time of Note Date/Time of Note DATE: 11/05/16 TIME: 18:33 Assessment/Plan VTE Prophylaxis VTE Prophylaxis Intervention: heparin Lines/Catheters IV Catheter Type (from Nrsg): Saline Lock Urinary Cath still in place: Yes Reason Cath still needed: other (indicate) (strict Is and Os, hydronephrosis) Assessment/Plan Assessment/Plan PROBLEMS: Congestive heart failure, hypertensive: compensated Moderate sebastian Pleural effusions with sebastian lower lobes collapse NSTEMI versus Troponin leak Hypertension: controlled Acute on Chronic kidney disease, stage 4 2/2 Cardiorenal syndrome Diabetes mellitus type 2 : controlled Normocytic anemia, likely CKD related + Iron deficiency Hyperuricemia PLAN: Pulm consult / will order thoracentesis if ok with Pulm Lasix held per nephro in the setting of worsening renal function Continue ASA / BB / Statin / Cardiology following No ACEi or ARB for renal failure Continue SSI and low dose Lantus / Home Glipizide and Januvia on hold Continue IV Iron repletion Supportive care Subjective 24 Hr Interval Summary Free Text/Dictation Spoke with nephrology Patient seen feels well CT reviewed Exam/Review of Systems Vital Signs Vitals Vital Signs Date Time Temp Pulse Resp B/P Pulse Ox O2 Delivery O2 Flow Rate FiO2 11/05/16 16:25 98.2 67 20 116/58 96 11/05/16 15:51 2.0 11/05/16 12:47 Nasal Cannula Intake and Output 11/04/16 11/04/16 11/05/16 15:00 23:00 07:00 Intake Total 950 ml 300 ml Output Total 1200 ml 650 ml Balance -250 ml -350 ml Exam Constitutional: alert, oriented Respiratory: diminished breath sounds Cardiovascular: murmurs/extra sounds, regular rate and rhythm Gastrointestinal: bowel sounds, non-tender, soft Extremities: No edema Neurological: lethargic, nl mental status Results Result Diagram: 11/05/16 0545 11/05/16 0545 Results 24 hrs Laboratory Tests Test 11/04/16 20:36 11/05/16 03:19 11/05/16 05:45 11/05/16 07:53 Bedside Glucose 194 203 143 Anion Gap 18 H Basophils # 0.0 Basophils % 0.6 Blood Urea Nitrogen 76 H Calcium Level 8.7 Carbon Dioxide Level 23 Chloride Level 105 Creatine Kinase 103 Creatinine 3.88 H Eosinophils # 0.4 Eosinophils % 6.2 Glucose Level 124 HIV (1&2) Antibody NEGATIVE Hematocrit 26.3 L Hemoglobin 8.8 L Hepatitis B Core Total Antibody NEGATIVE Hepatitis B Surface Antigen NEGATIVE Hepatitis C Antibody NEGATIVE Lymphocytes # 2.1 Lymphocytes % 31.1 Mean Corpuscular Hemoglobin 32.2 Mean Corpuscular Hemoglobin Concent 33.6 Mean Corpuscular Volume 96.1 Mean Platelet Volume 9.6 Monocytes # 0.6 Monocytes % 9.2 Neutrophils # 3.6 Neutrophils % 52.9 Nucleated Red Blood Cells # 0.0 Nucleated Red Blood Cells % 0.0 Platelet Count 226 Potassium Level 4.6 Red Blood Count 2.73 L Red Cell Distribution Width 13.0 Sodium Level 141 Uric Acid 8.9 H White Blood Count 6.8 # Test 11/05/16 11:40 11/05/16 12:20 11/05/16 17:14 Arterial Blood HCO3 24.8 Arterial Blood Base Excess -1.1 Arterial Blood Oxygen Saturation 92.6 L Solomon Test ACCEPTAB Arterial Blood Gas Puncture Site Left Radial Arterial Blood Carboxyhemoglobin 0.3 Arterial Blood Date Drawn 11/05/2016 11:43:20 AM Arterial Blood Methemoglobin 0.2 Arterial Blood pCO2 (Temp correct) 47.0 H Arterial Blood pH (Temp corrected) 7.341 L Arterial Blood pO2 (Temp corrected) 72.1 L Blood Gas A-a O2 Differential 21.3 Blood Gas Modality ROOM AIR Blood Gas Notified Time 11/05/2016 11:58:50 AM Blood Gas Notified Whom LS Blood Gas Specimen Source Blood arterial Blood Gas Temperature 37.0 FiO2 21.0 Oxyhemoglobin Percent 92.1 L Total Hemoglobin 9.6 L Bedside Glucose 211 184 Medications Medications Current Medications Acetaminophen (Tylenol Tab) 650 mg Q4H PRN PO PAIN AND OR ELEVATED TEMP; Start 11/02/16 at 23:00 Hydralazine HCl (Apresoline) 10 mg Q4H PRN IV ELEVATED SYSTOLIC BP Last administered on 11/03/16 12:48; Admin Dose 10 MG; Start 11/02/16 at 23:00 Miscellaneous Information 1 ea NOTE XX ; Start 11/02/16 at 23:30 Glucose (Glutose) 15 gm Q15M PRN PO DECREASED GLUCOSE; Start 11/02/16 at 23:30 Glucose (Glutose) 22.5 gm Q15M PRN PO DECREASED GLUCOSE; Start 11/02/16 at 23:30 Dextrose (D50w Syringe) 25 ml Q15M PRN IV DECREASED GLUCOSE; Start 11/02/16 at 23:30 Dextrose (D50w Syringe) 50 ml Q15M PRN IV DECREASED GLUCOSE; Start 11/02/16 at 23:30 Glucagon (Glucagen) 1 mg Q15M PRN IM DECREASED GLUCOSE; Start 11/02/16 at 23:30 Glucose (Glutose) 15 gm Q15M PRN BUCCAL DECREASED GLUCOSE; Start 11/02/16 at 23: 30 Clonidine (Catapres) 0.1 mg Q6H PRN PO SBP >160; Start 11/03/16 at 13:30 Nifedipine (Procardia Xl) 90 mg DAILY PO Last administered on 11/05/16 10:54; Admin Dose 90 MG; Start 11/03/16 at 14:30 Carvedilol (Coreg) 12.5 mg BID PO Last administered on 11/05/16 08:19; Admin Dose 12.5 MG; Start 11/03/16 at 21:00 Hydralazine HCl (Apresoline) 25 mg Q8 PO Last administered on 11/05/16 14:25; Admin Dose 25 MG; Start 11/03/16 at 22:00 Aspirin (Aspirin) 325 mg DAILY PO Last administered on 11/05/16 08:19; Admin Dose 325 MG; Start 11/03/16 at 17:00 Ascorbic Acid 500 mg 500 mg BID PO Last administered on 11/05/16 08:18; Admin Dose 500 MG; Start 11/04/16 at 21:00 Ferric Sodium Gluconate Complex/ Sodium Chloride (Ferrlecit/NS) 110 ml @ 100 mls/hr Q24H IVPB Last administered on 11/05/16 11:59; Admin Dose 100 MLS/HR; Start 11/04/16 at 12:00; Stop 11/06/16 at 13:05 Atorvastatin Calcium (Lipitor) 40 mg HS PO Last administered on 11/04/16 20:41 ; Admin Dose 40 MG; Start 11/04/16 at 21:00 Heparin Sodium (Porcine) (Heparin (5000 Units/0.5 ml)) 5,000 unit BID SC Last administered on 11/05/16 08:24; Admin Dose 5,000 UNIT; Start 11/04/16 at 21:00 Allopurinol (Zyloprim) 100 mg DAILY PO Last administered on 11/05/16t 10:53; Admin Dose 100 MG; Start 11/05/16 at 10:00 Procedures Procedures PROCEDURE: CT Chest without contrast. CLINICAL INDICATION: Dyspnea and pulmonary edema. TECHNIQUE: CT scan of the chest without contrast was performed on a multidetector high-resolution CT scanner. Coronal and sagittal reformatted images were obtained from the axial source images. The total exam CTDI equals 8.83 mGy and the total exam DLP equals 337.40 mGy-cm. COMPARISON: Plain film chest series dated 11/03/2016. FINDINGS: Moderate bilateral pleural effusions, right greater than left with partial collapse the bilateral lower lobes. The heart is not enlarged, but there is a small amount of pericardial fluid, otherwise nonspecific. The mediastinum is unremarkable without evidence for mass or lymphadenopathy. The vascular structures of the mediastinum are normal in course and caliber. Aortic vascular calcifications and coronary artery calcifications are present. The heart size is normal without evidence for pericardial thickening or effusion. The axillary regions, subpectoral regions, and supraclavicular regions are all unremarkable. The surrounding chest wall is unremarkable. Imaging obtained through the upper abdomen reveals no acute abnormality. The surrounding osseous structures are remarkable for degenerative spondylosis of the spine. No osteolytic or osteoblastic lesion is detected. IMPRESSION: 1. Moderate pleural effusions with partial collapse of the bilateral lower lobes. 2. Nonspecific mild pericardial fluid. RPTAT: [facility] Physician Luigi Date Time Electronically viewed and signed by Physician Luigi on 11/05/2016 01:30 PROCEDURE: US Retroperitoneum. CLINICAL INDICATION: Elevated BUN and creatinine. Rule out hydronephrosis. TECHNIQUE: Multiple sonographic images of the retroperitoneum were obtained. Evaluation of the kidneys and bladder was performed as well as visualization of the aorta and other retroperitoneal structures using a curved array transducer. The images were reviewed on a PACS workstation. COMPARISON: No prior studies are available for comparison. FINDINGS: The kidneys are well visualized. The right kidney measures 10.3 cm in length. 1.4 cm shadowing stone in the lower pole of right kidney. No evidence of hydronephrosis or renal mass. The left kidney measures 9.0 cm in length. There is mild left hydronephrosis. No evidence of renal mass or calculi. The aorta and IVC are of normal caliber. There is no evidence for aortic aneurysm. The bladder is decompressed by Diaz catheter and is not well evaluated. IMPRESSION: 1. 1.4 cm nonobstructing calculus in the lower pole of the right kidney. 2. Mild left hydronephrosis, of indeterminate etiology. 3. Incomplete evaluation of the urinary bladder due to Diaz catheter with completely decompressed state. RPTAT: QQ .Power Jones MD, Date Time Electronically viewed and signed by .Power Jones MD, on 11/04/2016 17: 23 PRASHANTH HOLDER Nov 05, 2016 18:41
--- NOTE | 2016-11-05 19:49 | CONS ---
Date/Time of Note Date/Time of Note DATE: 11/05/16 TIME: 19:47 Assessment/Plan Assessment/Plan Additional Assessment/Plan 1. Congestive heart failure exacerbation with Ef 45%. 2. Hypertension 3. CKD 4. Anemia. 5. Diabetes mellitus. 6. Dyslipidemia 7. pleural effusion Heart failure clinically compensated Continue Nifedipine and Coreg Continue Insulin Continue Low dose Lasix Avoid TERA-I/ ARBs Avoid Volume overload Thoracentesis Consultation Date/Type/Reason Admit Date/Time Nov 02, 2016 at 22:06 Initial Consult Date Type of Consultation: NEPHROLOGY Referring Provider: PRASHANTH HOLDER Exam/Review of Systems Vital Signs Vitals Vital Signs Date Time Temp Pulse Resp B/P Pulse Ox O2 Delivery O2 Flow Rate FiO2 11/05/16 16:25 98.2 67 20 116/58 96 11/05/16 15:51 2.0 11/05/16 12:47 Nasal Cannula Intake and Output 11/04/16 11/04/16 11/05/16 15:00 23:00 07:00 Intake Total 950 ml 300 ml Output Total 1200 ml 650 ml Balance -250 ml -350 ml Exam Constitutional: alert, oriented Head: atraumatic, normocephalic Respiratory: diminished breath sounds Cardiovascular: regular rate and rhythm Gastrointestinal: nl liver, spleen, non-tender, soft Extremities: normal pulses Results Result Diagram: 11/05/16 0545 11/05/16 0545 Results 24 hrs Laboratory Tests Test 11/04/16 20:36 11/05/16 03:19 11/05/16 05:45 11/05/16 07:53 Bedside Glucose 194 203 143 Anion Gap 18 H Basophils # 0.0 Basophils % 0.6 Blood Urea Nitrogen 76 H Calcium Level 8.7 Carbon Dioxide Level 23 Chloride Level 105 Creatine Kinase 103 Creatinine 3.88 H Eosinophils # 0.4 Eosinophils % 6.2 Glucose Level 124 HIV (1&2) Antibody NEGATIVE Hematocrit 26.3 L Hemoglobin 8.8 L Hepatitis B Core Total Antibody NEGATIVE Hepatitis B Surface Antigen NEGATIVE Hepatitis C Antibody NEGATIVE Lymphocytes # 2.1 Lymphocytes % 31.1 Mean Corpuscular Hemoglobin 32.2 Mean Corpuscular Hemoglobin Concent 33.6 Mean Corpuscular Volume 96.1 Mean Platelet Volume 9.6 Monocytes # 0.6 Monocytes % 9.2 Neutrophils # 3.6 Neutrophils % 52.9 Nucleated Red Blood Cells # 0.0 Nucleated Red Blood Cells % 0.0 Platelet Count 226 Potassium Level 4.6 Red Blood Count 2.73 L Red Cell Distribution Width 13.0 Sodium Level 141 Uric Acid 8.9 H White Blood Count 6.8 # Test 11/05/16 11:40 11/05/16 12:20 11/05/16 17:14 Arterial Blood HCO3 24.8 Arterial Blood Base Excess -1.1 Arterial Blood Oxygen Saturation 92.6 L Solomon Test ACCEPTAB Arterial Blood Gas Puncture Site Left Radial Arterial Blood Carboxyhemoglobin 0.3 Arterial Blood Date Drawn 11/05/2016 11:43:20 AM Arterial Blood Methemoglobin 0.2 Arterial Blood pCO2 (Temp correct) 47.0 H Arterial Blood pH (Temp corrected) 7.341 L Arterial Blood pO2 (Temp corrected) 72.1 L Blood Gas A-a O2 Differential 21.3 Blood Gas Modality ROOM AIR Blood Gas Notified Time 11/05/2016 11:58:50 AM Blood Gas Notified Whom LS Blood Gas Specimen Source Blood arterial Blood Gas Temperature 37.0 FiO2 21.0 Oxyhemoglobin Percent 92.1 L Total Hemoglobin 9.6 L Bedside Glucose 211 184 Medications Medications Current Medications Acetaminophen (Tylenol Tab) 650 mg Q4H PRN PO PAIN AND OR ELEVATED TEMP; Start 11/02/16 at 23:00 Hydralazine HCl (Apresoline) 10 mg Q4H PRN IV ELEVATED SYSTOLIC BP Last administered on 11/03/16t 12:48; Admin Dose 10 MG; Start 11/02/16 at 23:00 Miscellaneous Information 1 ea NOTE XX ; Start 11/02/16 at 23:30 Glucose (Glutose) 15 gm Q15M PRN PO DECREASED GLUCOSE; Start 11/02/16 at 23:30 Glucose (Glutose) 22.5 gm Q15M PRN PO DECREASED GLUCOSE; Start 11/02/16 at 23:30 Dextrose (D50w Syringe) 25 ml Q15M PRN IV DECREASED GLUCOSE; Start 11/02/16 at 23:30 Dextrose (D50w Syringe) 50 ml Q15M PRN IV DECREASED GLUCOSE; Start 11/02/16 at 23:30 Glucagon (Glucagen) 1 mg Q15M PRN IM DECREASED GLUCOSE; Start 11/02/16 at 23:30 Glucose (Glutose) 15 gm Q15M PRN BUCCAL DECREASED GLUCOSE; Start 11/02/16 at 23: 30 Clonidine (Catapres) 0.1 mg Q6H PRN PO SBP >160; Start 11/03/16 at 13:30 Nifedipine (Procardia Xl) 90 mg DAILY PO Last administered on 11/05/16 10:54; Admin Dose 90 MG; Start 11/03/16 at 14:30 Carvedilol (Coreg) 12.5 mg BID PO Last administered on 11/05/16 08:19; Admin Dose 12.5 MG; Start 11/03/16 at 21:00 Hydralazine HCl (Apresoline) 25 mg Q8 PO Last administered on 11/05/16 14:25; Admin Dose 25 MG; Start 11/03/16 at 22:00 Aspirin (Aspirin) 325 mg DAILY PO Last administered on 11/05/16 08:19; Admin Dose 325 MG; Start 11/03/16 at 17:00 Ascorbic Acid 500 mg 500 mg BID PO Last administered on 11/05/16 08:18; Admin Dose 500 MG; Start 11/04/16 at 21:00 Ferric Sodium Gluconate Complex/ Sodium Chloride (Ferrlecit/NS) 110 ml @ 100 mls/hr Q24H IVPB Last administered on 11/05/16 11:59; Admin Dose 100 MLS/HR; Start 11/04/16 at 12:00; Stop 11/06/16 at 13:05 Atorvastatin Calcium (Lipitor) 40 mg HS PO Last administered on 11/04/16 20:41 ; Admin Dose 40 MG; Start 11/04/16 at 21:00 Heparin Sodium (Porcine) (Heparin (5000 Units/0.5 ml)) 5,000 unit BID SC Last administered on 11/05/16 08:24; Admin Dose 5,000 UNIT; Start 11/04/16 at 21:00 Allopurinol (Zyloprim) 100 mg DAILY PO Last administered on 11/05/16 10:53; Admin Dose 100 MG; Start 11/05/16 at 10:00 MARCELINO BARON M.D. Nov 05, 2016 19:49
[2016-11-05] MEDS: ATORVASTATIN 40 MG TAB PO SCH (21:02)
[2016-11-06] VITALS (10 sets, daily range): BP systolic 131–154; BP diastolic 63–71; PULSE 60–72; RESP 18–19
[2016-11-06 07:50] LABS: BASOPHILS % 0.3 % (0.0-2.0); EOSINOPHILS # 0.3 10^3/ul (0.0-0.5); EOSINOPHILS % 4.6 % (0.0-7.0); HEMATOCRIT 26.2 % (37.0-47.0); HEMOGLOBIN 8.9 g/dl (12.0-16.0); LYMPHOCYTES # 1.4 10^3/ul (0.8-2.9); LYMPHOCYTES % 21.7 % (15.0-51.0); MEAN CORPUSCULAR HEMOGLOBIN 32.7 pg (29.0-33.0); MEAN CORPUSCULAR HGB CONC 33.8 g/dl (32.0-37.0); MEAN CORPUSCULAR VOLUME 96.8 fl (82.0-101.0); MEAN PLATELET VOLUME 10.1 fl (7.4-10.4); MONOCYTE # 0.7 10^3/ul (0.3-0.9); MONOCYTES % 10.7 % (0.0-11.0); NEUTROPHILS % 62.7 % (39.0-77.0); PLATELET COUNT 218 10^3/UL (140-440); RED CELL DISTRIBUTION WIDTH 13.2 % (11.5-14.5); UNCORRECTED WBC 6.4 10^3/ul (4.8-10.8); WHITE BLOOD COUNT 6.4 10^3/ul (4.8-10.8)
[2016-11-06 07:52] LABS: CONDITION 1
[2016-11-06 08:03] LABS: CREATININE 3.77 mg/dl (0.44-1.00)
[2016-11-06 08:04] LABS: CALCIUM 8.7 mg/dl (8.4-10.2); INR 0.96; PROTIME 12.8 Sec (12.2-14.2)
[2016-11-06 08:05] LABS: PARTIAL THROMBOPLASTIN TIME 37.4 Sec (25.0-35.0)
[2016-11-06] MEDS: INSULIN ASPART [NOVOLOG] 3 ML PEN SC SCH ×4 (08:08→20:24)
[2016-11-06] MEDS: HEPARIN 5,000 UNIT/0.5 ML SYG SC SCH ×2 (08:13→20:25)
[2016-11-06] MEDS: ASCORBIC ACID 500 MG TAB PO SCH ×2 (08:14→20:14)
[2016-11-06] MEDS: ALLOPURINOL 100 MG TAB PO SCH (08:14)
[2016-11-06] MEDS: NIFEdipine (XL) 90 MG TAB PO SCH (08:15)
[2016-11-06] MEDS: ASPIRIN 325 MG TAB PO SCH (08:15)
[2016-11-06] MEDS: ACETAMINOPHEN 325 MG TAB PO PRN (08:16)
[2016-11-06] MEDS ORDERED: LIDOCAINE 1% (MPF) 5 ML VIAL ONE (09:05)
--- NOTE | 2016-11-06 09:16 | RADRPT ---
PROCEDURE: Ultrasound guided thoracentesis CLINICAL INDICATION: Pleural effusion TECHNIQUE: The risks benefits and alternatives of the procedure were explained to the patient. In formed written consent was obtained. A time-out was performed. The overlying skin of the right pos terolateral chest was prepped and draped in the usual fashion. Approximately 5 cc of lidocaine was injected locally for pain control. Under ultrasound guidance, a 5-[place] Yueh catheter was introduc ed into the pleural space without difficulty. COMPARISON: CT, 11/04/2016 FINDINGS: 620 cc of clear yellow fluid was aspirated from the right pleural space. The fluid was sent to the l ab for further analysis. IMPRESSION: 1. Successful right chest ultrasound guided thoracentesis. 2. No immediate complications occurred. RPTAT: QQ .Balta Morales MD, Date Time Electronically viewed and signed by .Balta Morales MD, on 11/06/2016 09:15 .R/
--- NOTE | 2016-11-06 09:36 | RADRPT ---
PROCEDURE: XR Chest. CLINICAL INDICATION: Post thoracentesis TECHNIQUE: Single frontal chest x-ray. COMPARISON: 11/03/2016 FINDINGS: There has been interval resolution of previously seen right pleural effusion status post thoracentes is. No pneumothorax is identified. Minimal hazy opacity is again noted at the left lung base. Car diomediastinal silhouette is within normal limits. Aortic atherosclerotic calcification is noted. The osseous structures are unremarkable. IMPRESSION: 1. Interval resolution of previously seen right pleural effusion status post thoracentesis. No pne umothorax is identified. 2. Minimal hazy opacity is seen at the left lung base, decreased when compared to the prior exam, l ikely atelectasis and/or small pleural effusion. RPTAT: QQ .Balta Morales MD, Date Time Electronically viewed and signed by .Balta Morales MD, on 11/06/2016 09:36 .R/
--- NOTE | 2016-11-06 10:58 | CONS ---
Date/Time of Note Date/Time of Note DATE: 11/06/16 TIME: 10:55 Assessment/Plan Assessment/Plan Additional Assessment/Plan ASSESMENT: 1. Acute kidney injury versus acute kidney injury on chronic kidney disease IV secondary to cardiorenal syndrome. 2. Possible history of chronic kidney disease stage IV secondary to diabetic nephropathy. 3. History of hypertension. 4. History of diabetes mellitus. 5. History of previous CHF, possibly systolic and diastolic. 6. Right kidney nephrolithiasis 1.4cm Nonobstrucing calculus in lower pole of right kidney 7. mild left hydronephrosis 8. Hyperuricemia with uric acid 8.9 Plan: pt breathing better, CT chest showed moderate pleural effusion bilaterally with lower lobe lung collpase, made good urine, US showed right kidney lower pole 1.3cm nonobstructing renal calcusus, with Mild left hydronephrosis her renal function worsening, made good urine output with IV lasix, ECHO showed EF 45% with stage I diastolic dysfunction Started allopurinol for hyperuricemia, uric acid 8.9 Her Urine eosinophils showed 2%- with normal CBC differential- still within higher normal range- will monitor her for interstitial nephritis HIV, hepatitis panel, CK total normal, will follow up if Cardiolgy planning to do LHC - due to rising creatinine and BUN- will plan for initiation of HD Consultation Date/Type/Reason Admit Date/Time Nov 02, 2016 at 22:06 Type of Consultation: NEPHROLOGY Referring Provider: PRASHANTH HOLDER 24 HR Interval Summary Free Text/Dictation pt stable,s/p R Thoracentesis- 620 cc drained,BP stable, Exam/Review of Systems Vital Signs Vitals Vital Signs Date Time Temp Pulse Resp B/P Pulse Ox O2 Delivery O2 Flow Rate FiO2 11/06/16 08:49 64 11/06/16 08:00 98.1 18 133/71 97 11/06/16 04:01 2.0 11/05/16 23:50 Nasal Cannula Intake and Output 11/05/16 11/05/16 11/06/16 15:00 23:00 07:00 Intake Total 1650 ml 300 ml Output Total 2000 ml 650 ml Balance -350 ml -350 ml Exam GENERAL: Awake, alert. In mild distress due to the shortness of breath. HEENT: Normal. No jugular venous distention. NECK: Supple. HEART: S1, S2, with a regular rhythm. No murmur. LUNGS: Bibasilar crackles present, with decreased breath sounds at both lung bases. ABDOMEN: Soft, nontender, nondistended. Bowel sounds are present. EXTREMITIES: No clubbing, cyanosis, or edema. NEUROLOGICAL: Nonfocal, intact. PSYCHIATRIC: Appropriate affect and mood. Results Result Diagram: 11/06/16 0645 11/06/16 0645 Results 24 hrs Laboratory Tests Test 11/05/16 11:40 11/05/16 12:20 11/05/16 17:14 11/05/16 21:00 Arterial Blood HCO3 24.8 Arterial Blood Base Excess -1.1 Arterial Blood Oxygen Saturation 92.6 L Solomon Test ACCEPTAB Arterial Blood Gas Puncture Site Left Radial Arterial Blood Carboxyhemoglobin 0.3 Arterial Blood Date Drawn 11/05/2016 11:43:20 AM Arterial Blood Methemoglobin 0.2 Arterial Blood pCO2 (Temp correct) 47.0 H Arterial Blood pH (Temp corrected) 7.341 L Arterial Blood pO2 (Temp corrected) 72.1 L Blood Gas A-a O2 Differential 21.3 Blood Gas Modality ROOM AIR Blood Gas Notified Time 11/05/2016 11:58:50 AM Blood Gas Notified Whom LS Blood Gas Specimen Source Blood arterial Blood Gas Temperature 37.0 FiO2 21.0 Oxyhemoglobin Percent 92.1 L Total Hemoglobin 9.6 L Bedside Glucose 211 184 228 H Test 11/06/16 05:52 11/06/16 06:45 11/06/16 08:07 Bedside Glucose 156 148 Activated Partial Thromboplast Time 37.4 H Anion Gap 18 H Basophils # 0.0 Basophils % 0.3 Blood Urea Nitrogen 83 H Calcium Level 8.7 Carbon Dioxide Level 22 Chloride Level 105 Creatinine 3.77 H Eosinophils # 0.3 Eosinophils % 4.6 Glucose Level 145 Hematocrit 26.2 L Hemoglobin 8.9 L INR International Normalized Ratio 0.96 Lymphocytes # 1.4 Lymphocytes % 21.7 Mean Corpuscular Hemoglobin 32.7 Mean Corpuscular Hemoglobin Concent 33.8 Mean Corpuscular Volume 96.8 Mean Platelet Volume 10.1 Monocytes # 0.7 Monocytes % 10.7 Neutrophils # 4.0 Neutrophils % 62.7 Nucleated Red Blood Cells # 0.0 Nucleated Red Blood Cells % 0.0 Platelet Count 218 Potassium Level 5.0 Prothrombin Time 12.8 Prothrombin Time Ratio 1.0 Red Blood Count 2.70 L Red Cell Distribution Width 13.2 Sodium Level 140 White Blood Count 6.4 Medications Medications Current Medications Acetaminophen (Tylenol Tab) 650 mg Q4H PRN PO PAIN AND OR ELEVATED TEMP Last administered on 11/06/16 08:16; Admin Dose 650 MG; Start 11/02/16 at 23:00 Hydralazine HCl (Apresoline) 10 mg Q4H PRN IV ELEVATED SYSTOLIC BP Last administered on 11/03/16 12:48; Admin Dose 10 MG; Start 11/02/16 at 23:00 Miscellaneous Information 1 ea NOTE XX ; Start 11/02/16 at 23:30 Glucose (Glutose) 15 gm Q15M PRN PO DECREASED GLUCOSE; Start 11/02/16 at 23:30 Glucose (Glutose) 22.5 gm Q15M PRN PO DECREASED GLUCOSE; Start 11/02/16 at 23:30 Dextrose (D50w Syringe) 25 ml Q15M PRN IV DECREASED GLUCOSE; Start 11/02/16 at 23:30 Dextrose (D50w Syringe) 50 ml Q15M PRN IV DECREASED GLUCOSE; Start 11/02/16 at 23:30 Glucagon (Glucagen) 1 mg Q15M PRN IM DECREASED GLUCOSE; Start 11/02/16 at 23:30 Glucose (Glutose) 15 gm Q15M PRN BUCCAL DECREASED GLUCOSE; Start 11/02/16 at 23: 30 Clonidine (Catapres) 0.1 mg Q6H PRN PO SBP >160; Start 11/03/16 at 13:30 Nifedipine (Procardia Xl) 90 mg DAILY PO Last administered on 11/06/16 08:15; Admin Dose 90 MG; Start 11/03/16 at 14:30 Carvedilol (Coreg) 12.5 mg BID PO Last administered on 11/06/16 08:16; Admin Dose 12.5 MG; Start 11/03/16 at 21:00 Hydralazine HCl (Apresoline) 25 mg Q8 PO Last administered on 11/06/16 05:57; Admin Dose 25 MG; Start 11/03/16 at 22:00 Aspirin (Aspirin) 325 mg DAILY PO Last administered on 11/06/16 08:15; Admin Dose 325 MG; Start 11/03/16 at 17:00 Ascorbic Acid 500 mg 500 mg BID PO Last administered on 11/06/16 08:14; Admin Dose 500 MG; Start 11/04/16 at 21:00 Ferric Sodium Gluconate Complex/ Sodium Chloride (Ferrlecit/NS) 110 ml @ 100 mls/hr Q24H IVPB Last administered on 11/05/16 11:59; Admin Dose 100 MLS/HR; Start 11/04/16 at 12:00; Stop 11/06/16 at 13:05 Atorvastatin Calcium (Lipitor) 40 mg HS PO Last administered on 11/05/16 21:02 ; Admin Dose 40 MG; Start 11/04/16 at 21:00 Heparin Sodium (Porcine) (Heparin (5000 Units/0.5 ml)) 5,000 unit BID SC Last administered on 11/06/16 08:13; Admin Dose 5,000 UNIT; Start 11/04/16 at 21:00 Allopurinol (Zyloprim) 100 mg DAILY PO Last administered on 11/06/16 08:14; Admin Dose 100 MG; Start 11/05/16 at 10:00 ITM MELCHOR MD Nov 06, 2016 10:58
[2016-11-06 11:32] LABS: FLUID GLUCOSE 141 mg/dl
[2016-11-06 11:33] LABS: FLUID TOTAL PROTEIN 2.4 g/dl; FLUID TYPE THORACENTESIS FLUID
[2016-11-06] MEDS: SOD FERRIC GLUC COMPLX 125 MG in SOD CHLORIDE 0.9% 100 ML IVPB SCH (11:53)
[2016-11-06 12:41] LABS: FLUID APPEARANCE SLIGHTLY HAZY; FLUID TYPE THORACENTHESIS
[2016-11-06 12:42] LABS: FLUID RBC EST 1+; FLUID WBC'S 364 /cmm
[2016-11-06 12:52] LABS: FLUID LYMPHOCYTES 17 %; FLUID NEUTROPHILS 5 %
[2016-11-06 12:58] LABS: FLUID MONOCYTES 30 %
--- NOTE | 2016-11-06 17:38 | CONS ---
Date/Time of Note Date/Time of Note DATE: 11/06/16 TIME: 17:34 Assessment/Plan Assessment/Plan Chief Complaint/Hosp Course IMPRESSION: 1. Congestive heart failure exacerbation-EF 45% by echo and thus systolic acute on chronic 2. Hypertension, uncontrolled. 3. Positive troponin, assess significance, assess for true acute coronary syndrome. 4. Renal failure. 5. Anemia. 6. Shortness of breath secondary to #1. 7. Diabetes mellitus. 8. Chest pain-C/O today Recc: -Tele -Continue coreg/hydralazine/procardia XL -Continue statin -Follow creatnine closely off of lasix -AM lexsiacn to assess significance of positive troponin Problems: Consultation Date/Type/Reason Admit Date/Time Nov 02, 2016 at 22:06 Initial Consult Date 11/03/2016 Type of Consultation: Cardiology Reason for Consultation positive troponin/chest pain Referring Provider: PRASHANTH HOLDER Exam/Review of Systems Vital Signs Vitals Vital Signs Date Time Temp Pulse Resp B/P Pulse Ox O2 Delivery O2 Flow Rate FiO2 11/06/16 16:40 68 11/06/16 13:08 98.3 154/68 98 Nasal Cannula 2.0 11/06/16 08:00 18 Intake and Output 11/05/16 11/05/16 11/06/16 15:00 23:00 07:00 Intake Total 1650 ml 300 ml Output Total 2000 ml 650 ml Balance -350 ml -350 ml Exam Review of Systems: CONSTITUTIONAL: No fevers, chills. PULMONARY: No sob CARDIOVASCULAR:c/o chest pain GASTROINTESTINAL: No nausea/vomiting. GENITOURINARY: No hematuria/dysuria. MUSCULOSKELETAL: No myagias/arthalgias. PSYCHIATRIC: The patient denies depression. NEUROLOGIC: No weakness Constitutional: alert, oriented Psych: no complaints Head: normocephalic ENMT: mucosa pink and moist Neck: jvd (8-9 cm water), supple Respiratory: clear to auscultation Cardiovascular: regular rate and rhythm Gastrointestinal: non-tender, soft Musculoskeletal: muscle tone (normal) Extremities: edema (trace) Neurological: other (No focal deficits) Results Result Diagram: 11/06/16 0645 11/06/16 0645 Results 24 hrs Laboratory Tests Test 11/05/16 21:00 11/06/16 05:52 11/06/16 06:45 11/06/16 08:07 Bedside Glucose 228 H 156 148 Activated Partial Thromboplast Time 37.4 H Anion Gap 18 H Basophils # 0.0 Basophils % 0.3 Blood Urea Nitrogen 83 H Calcium Level 8.7 Carbon Dioxide Level 22 Chloride Level 105 Creatinine 3.77 H Eosinophils # 0.3 Eosinophils % 4.6 Glucose Level 145 Hematocrit 26.2 L Hemoglobin 8.9 L INR International Normalized Ratio 0.96 Lymphocytes # 1.4 Lymphocytes % 21.7 Mean Corpuscular Hemoglobin 32.7 Mean Corpuscular Hemoglobin Concent 33.8 Mean Corpuscular Volume 96.8 Mean Platelet Volume 10.1 Monocytes # 0.7 Monocytes % 10.7 Neutrophils # 4.0 Neutrophils % 62.7 Nucleated Red Blood Cells # 0.0 Nucleated Red Blood Cells % 0.0 Platelet Count 218 Potassium Level 5.0 Prothrombin Time 12.8 Prothrombin Time Ratio 1.0 Red Blood Count 2.70 L Red Cell Distribution Width 13.2 Sodium Level 140 White Blood Count 6.4 Test 11/06/16 08:40 11/06/16 11:54 11/06/16 17:05 Body Fluid Appearance SLIGHTLY HAZY Body Fluid Color YELLOW Body Fluid Glucose 141 Body Fluid Lactate Dehydrogenase Body Fluid Lymphocytes (%) 17 Body Fluid Monocytes % 30 Body Fluid Neutrophils % 5 Body Fluid Other Cells (%) 48 Body Fluid RBC 1+ Body Fluid Total Protein 2.4 Body Fluid Type Body Fluid Volume 650.0 Body Fluid WBC 364 Bedside Glucose 250 H 199 Medications Medications Current Medications Acetaminophen (Tylenol Tab) 650 mg Q4H PRN PO PAIN AND OR ELEVATED TEMP Last administered on 11/06/16 08:16; Admin Dose 650 MG; Start 11/02/16 at 23:00 Hydralazine HCl (Apresoline) 10 mg Q4H PRN IV ELEVATED SYSTOLIC BP Last administered on 11/03/16 12:48; Admin Dose 10 MG; Start 11/02/16 at 23:00 Miscellaneous Information 1 ea NOTE XX ; Start 11/02/16 at 23:30 Glucose (Glutose) 15 gm Q15M PRN PO DECREASED GLUCOSE; Start 11/02/16 at 23:30 Glucose (Glutose) 22.5 gm Q15M PRN PO DECREASED GLUCOSE; Start 11/02/16 at 23:30 Dextrose (D50w Syringe) 25 ml Q15M PRN IV DECREASED GLUCOSE; Start 11/02/16 at 23:30 Dextrose (D50w Syringe) 50 ml Q15M PRN IV DECREASED GLUCOSE; Start 11/02/16 at 23:30 Glucagon (Glucagen) 1 mg Q15M PRN IM DECREASED GLUCOSE; Start 11/02/16 at 23:30 Glucose (Glutose) 15 gm Q15M PRN BUCCAL DECREASED GLUCOSE; Start 11/02/16 at 23: 30 Clonidine (Catapres) 0.1 mg Q6H PRN PO SBP >160; Start 11/03/16 at 13:30 Nifedipine (Procardia Xl) 90 mg DAILY PO Last administered on 11/06/16 08:15; Admin Dose 90 MG; Start 11/03/16 at 14:30 Carvedilol (Coreg) 12.5 mg BID PO Last administered on 11/06/16 08:16; Admin Dose 12.5 MG; Start 11/03/16 at 21:00 Hydralazine HCl (Apresoline) 25 mg Q8 PO Last administered on 11/06/16 15:18; Admin Dose 25 MG; Start 11/03/16 at 22:00 Aspirin (Aspirin) 325 mg DAILY PO Last administered on 11/06/16 08:15; Admin Dose 325 MG; Start 11/03/16 at 17:00 Ascorbic Acid (Vitamin C) 500 mg BID PO Last administered on 11/06/16 08:14; Admin Dose 500 MG; Start 11/04/16 at 21:00 Atorvastatin Calcium (Lipitor) 40 mg HS PO Last administered on 11/05/16 21:02 ; Admin Dose 40 MG; Start 11/04/16 at 21:00 Heparin Sodium (Porcine) (Heparin (5000 Units/0.5 ml)) 5,000 unit BID SC Last administered on 11/06/16 08:13; Admin Dose 5,000 UNIT; Start 11/04/16 at 21:00 Allopurinol (Zyloprim) 100 mg DAILY PO Last administered on 11/06/16 08:14; Admin Dose 100 MG; Start 11/05/16 at 10:00 PAUL WALKER Nov 06, 2016 17:38
[2016-11-06] MEDS: ATORVASTATIN 40 MG TAB PO SCH (20:14)
[2016-11-07] VITALS (10 sets, daily range): BP systolic 113–159; BP diastolic 56–82; PULSE 62–66; RESP 18
[2016-11-07] MEDS: ACETAMINOPHEN 325 MG TAB PO PRN ×2 (00:23→12:31)
[2016-11-07 07:24] LABS: BASOPHILS % 0.6 % (0.0-2.0); EOSINOPHILS # 0.3 10^3/ul (0.0-0.5); EOSINOPHILS % 4.6 % (0.0-7.0); HEMATOCRIT 25.4 % (37.0-47.0); HEMOGLOBIN 8.6 g/dl (12.0-16.0); LYMPHOCYTES # 1.8 10^3/ul (0.8-2.9); LYMPHOCYTES % 28.5 % (15.0-51.0); MEAN CORPUSCULAR HEMOGLOBIN 32.7 pg (29.0-33.0); MEAN CORPUSCULAR HGB CONC 33.9 g/dl (32.0-37.0); MEAN CORPUSCULAR VOLUME 96.6 fl (82.0-101.0); MEAN PLATELET VOLUME 10.1 fl (7.4-10.4); MONOCYTE # 0.6 10^3/ul (0.3-0.9); MONOCYTES % 9.4 % (0.0-11.0); NEUTROPHIL # 3.6 10^3/ul (1.6-7.5); NEUTROPHILS % 56.9 % (39.0-77.0); PLATELET COUNT 199 10^3/UL (140-440); RED BLOOD COUNT 2.63 10^6/ul (4.20-5.40); RED CELL DISTRIBUTION WIDTH 13.2 % (11.5-14.5); UNCORRECTED WBC 6.2 10^3/ul (4.8-10.8); WHITE BLOOD COUNT 6.2 10^3/ul (4.8-10.8)
[2016-11-07 07:37] LABS: CONDITION 1
[2016-11-07 07:44] LABS: INR 1.07; PROTIME 13.9 Sec (12.2-14.2); PT RATIO 1.1
[2016-11-07 07:45] LABS: PARTIAL THROMBOPLASTIN TIME 37.8 Sec (25.0-35.0)
[2016-11-07] MEDS: INSULIN ASPART [NOVOLOG] 3 ML PEN SC SCH ×3 (08:00→18:08)
[2016-11-07 08:03] LABS: CALCIUM 8.7 mg/dl (8.4-10.2); CREATININE 3.56 mg/dl (0.44-1.00)
[2016-11-07] MEDS: ASPIRIN 325 MG TAB PO SCH (08:47)
[2016-11-07] MEDS: ASCORBIC ACID 500 MG TAB PO SCH (08:48)
[2016-11-07] MEDS: NIFEdipine (XL) 90 MG TAB PO SCH (08:48)
[2016-11-07] MEDS: ALLOPURINOL 100 MG TAB PO SCH (08:48)
[2016-11-07] MEDS: HEPARIN 5,000 UNIT/0.5 ML SYG SC SCH (08:50)
--- NOTE | 2016-11-07 08:58 | CONS ---
Date/Time of Note Date/Time of Note DATE: 11/07/16 TIME: 08:54 Assessment/Plan Assessment/Plan Additional Assessment/Plan 1. Congestive heart failure exacerbation-EF 45% by echo and thus systolic acute on chronic- better fluid status now 2. Hypertension - on high side - did not get her am meds yet - plan for [place] Stres test today 3. Positive troponin, assess significance, assess for true acute coronary syndrome- no CP, stress test to follow 4. Renal failure- avoid nephrotoxic meds 5. Anemia- h/h stable - no bleeding noted 6. Shortness of breath secondary to #1. 7. Diabetes mellitus. 8. Chest pain-C/O today - Stress test to follow. Consultation Date/Type/Reason Admit Date/Time Nov 02, 2016 at 22:06 Initial Consult Date Type of Consultation: Cardiology Referring Provider: PRASHANTH HOLDER 24 HR Interval Summary Free Text/Dictation NO chest pain - BP on high side - did not get her am meds yet - plan for [place] Stres test today ROS: No fever, no chills, no nausea, no vomiting, no diarrhea/constipation No recent weight changes No chest pain, no PND, no orthopnea No dizziness, blurred vision No thirst, no heat or cold intolerance Exam/Review of Systems Vital Signs Vitals Vital Signs Date Time Temp Pulse Resp B/P Pulse Ox O2 Delivery O2 Flow Rate FiO2 11/07/16 08:29 64 11/07/16 07:48 97.9 18 126/61 95 11/07/16 05:17 2.0 11/06/16 19:15 Nasal Cannula Intake and Output 11/06/16 11/06/16 11/07/16 15:00 23:00 07:00 Intake Total 760 ml 500 ml Output Total 1100 ml 550 ml Balance -340 ml -50 ml Exam General: WN/WD/NAD, AO x 3 HEENT: Unicetric/atraumatic/EOMI (follows commands) NECK: JVD elevated, no thyromegaly Lymph: no lymphadenopathy HEART: regular with no S3, II/ systolic murmur at apex LUNGS: Coarse sounds ABD: soft, NT, ND, +BS : Intact Neuro: non focal SKIN: chronic changes EXT: trace edema Results Result Diagram: 11/07/1645 11/07/16644 Results 24 hrs Laboratory Tests Test 11/06/16 11:54 11/06/16 17:05 11/06/16 20:21 11/07/16 06:45 Bedside Glucose 250 H 199 251 H Activated Partial Thromboplast Time 37.8 H Anion Gap 18 H Basophils # 0.0 Basophils % 0.6 Blood Urea Nitrogen 93 H Calcium Level 8.7 Carbon Dioxide Level 22 Chloride Level 106 Creatinine 3.56 H Eosinophils # 0.3 Eosinophils % 4.6 Glucose Level 137 Hematocrit 25.4 L Hemoglobin 8.6 L INR International Normalized Ratio 1.07 Lymphocytes # 1.8 Lymphocytes % 28.5 Mean Corpuscular Hemoglobin 32.7 Mean Corpuscular Hemoglobin Concent 33.9 Mean Corpuscular Volume 96.6 Mean Platelet Volume 10.1 Monocytes # 0.6 Monocytes % 9.4 Neutrophils # 3.6 Neutrophils % 56.9 Nucleated Red Blood Cells # 0.0 Nucleated Red Blood Cells % 0.0 Platelet Count 199 Potassium Level 5.0 Prothrombin Time 13.9 Prothrombin Time Ratio 1.1 Red Blood Count 2.63 L Red Cell Distribution Width 13.2 Sodium Level 141 White Blood Count 6.2 Test 11/07/16 08:46 Bedside Glucose 187 Medications Medications Current Medications Acetaminophen (Tylenol Tab) 650 mg Q4H PRN PO PAIN AND OR ELEVATED TEMP Last administered on 11/07/16 00:23; Admin Dose 650 MG; Start 11/02/16 at 23:00 Hydralazine HCl (Apresoline) 10 mg Q4H PRN IV ELEVATED SYSTOLIC BP Last administered on 11/03/16 12:48; Admin Dose 10 MG; Start 11/02/16 at 23:00 Miscellaneous Information 1 ea NOTE XX ; Start 11/02/16 at 23:30 Glucose (Glutose) 15 gm Q15M PRN PO DECREASED GLUCOSE; Start 11/02/16 at 23:30 Glucose (Glutose) 22.5 gm Q15M PRN PO DECREASED GLUCOSE; Start 11/02/16 at 23:30 Dextrose (D50w Syringe) 25 ml Q15M PRN IV DECREASED GLUCOSE; Start 11/02/16 at 23:30 Dextrose (D50w Syringe) 50 ml Q15M PRN IV DECREASED GLUCOSE; Start 11/02/16 at 23:30 Glucagon (Glucagen) 1 mg Q15M PRN IM DECREASED GLUCOSE; Start 11/02/16 at 23:30 Glucose (Glutose) 15 gm Q15M PRN BUCCAL DECREASED GLUCOSE; Start 11/02/16 at 23: 30 Clonidine (Catapres) 0.1 mg Q6H PRN PO SBP >160; Start 11/03/16 at 13:30 Nifedipine (Procardia Xl) 90 mg DAILY PO Last administered on 11/06/16 08:15; Admin Dose 90 MG; Start 11/03/16 at 14:30 Carvedilol (Coreg) 12.5 mg BID PO Last administered on 11/06/16 20:15; Admin Dose 12.5 MG; Start 11/03/16 at 21:00 Hydralazine HCl (Apresoline) 25 mg Q8 PO Last administered on 11/06/16 21:57; Admin Dose 25 MG; Start 11/03/16 at 22:00 Aspirin (Aspirin) 325 mg DAILY PO Last administered on 11/06/16 08:15; Admin Dose 325 MG; Start 11/03/16 at 17:00 Ascorbic Acid (Vitamin C) 500 mg BID PO Last administered on 11/06/16 20:14; Admin Dose 500 MG; Start 11/04/16 at 21:00 Atorvastatin Calcium (Lipitor) 40 mg HS PO Last administered on 11/06/16 20:14 ; Admin Dose 40 MG; Start 11/04/16 at 21:00 Heparin Sodium (Porcine) (Heparin (5000 Units/0.5 ml)) 5,000 unit BID SC Last administered on 11/06/16 20:25; Admin Dose 5,000 UNIT; Start 11/04/16 at 21:00 Allopurinol (Zyloprim) 100 mg DAILY PO Last administered on 11/06/16 08:14; Admin Dose 100 MG; Start 11/05/16 at 10:00 LORENA THOMAS MD Nov 07, 2016 08:58
[2016-11-07] MEDS ORDERED: REGADENOSON 0.4 MG/5 ML SYG ONE (11:00)
--- NOTE | 2016-11-07 11:09 | CONS ---
Date/Time of Note Date/Time of Note DATE: 11/07/16 TIME: 11:07 Assessment/Plan Assessment/Plan Additional Assessment/Plan ASSESMENT: 1. Acute kidney injury versus acute kidney injury on chronic kidney disease IV secondary to cardiorenal syndrome. 2. Possible history of chronic kidney disease stage IV secondary to diabetic nephropathy. 3. History of hypertension. 4. History of diabetes mellitus. 5. History of previous CHF, possibly systolic and diastolic. 6. Right kidney nephrolithiasis 1.4cm Nonobstrucing calculus in lower pole of right kidney 7. mild left hydronephrosis 8. Hyperuricemia with uric acid 8.9 Plan: CT chest showed moderate pleural effusion bilaterally with lower lobe lung collpase, made good urine, US showed right kidney lower pole 1.3cm nonobstructing renal calcusus, with Mild left hydronephrosis her renal function worsening, ECHO showed EF 45% with stage I diastolic dysfunction- lasix has been stopped for last two day, US thoracentesis drained 600 cc fluid Started allopurinol for hyperuricemia, uric acid 8.9 Her Urine eosinophils showed 2%- with normal CBC differential- still within higher normal range- will monitor her for interstitial nephritis HIV, hepatitis panel, CK total normal, will follow up pt will likely need HD inititation Consultation Date/Type/Reason Admit Date/Time Nov 02, 2016 at 22:06 Type of Consultation: NEPHROLOGY Referring Provider: PRASHANTH HOLDER 24 HR Interval Summary Free Text/Dictation pt renal function has been worsening, Plan for Lexiscan today Exam/Review of Systems Vital Signs Vitals Vital Signs Date Time Temp Pulse Resp B/P Pulse Ox O2 Delivery O2 Flow Rate FiO2 11/07/16 08:29 64 11/07/16 07:48 97.9 18 126/61 95 11/07/16 05:17 2.0 11/06/16 19:15 Nasal Cannula Intake and Output 11/06/16 11/06/16 11/07/16 15:00 23:00 07:00 Intake Total 760 ml 500 ml Output Total 1100 ml 550 ml Balance -340 ml -50 ml Exam GENERAL: Awake, alert. HEENT: Normal. No jugular venous distention. NECK: Supple. HEART: S1, S2, with a regular rhythm. No murmur. LUNGS: Bibasilar crackles present, with decreased breath sounds at both lung bases. ABDOMEN: Soft, nontender, nondistended. Bowel sounds are present. EXTREMITIES: No clubbing, cyanosis, 1+ edema. NEUROLOGICAL: Nonfocal, intact. PSYCHIATRIC: Appropriate affect and mood. Results Result Diagram: 11/07/16 0645 11/07/16 0645 Results 24 hrs Laboratory Tests Test 11/06/16 11:54 11/06/16 17:05 11/06/16 20:21 11/07/16 06:45 Bedside Glucose 250 H 199 251 H Activated Partial Thromboplast Time 37.8 H Anion Gap 18 H Basophils # 0.0 Basophils % 0.6 Blood Urea Nitrogen 93 H Calcium Level 8.7 Carbon Dioxide Level 22 Chloride Level 106 Creatinine 3.56 H Eosinophils # 0.3 Eosinophils % 4.6 Glucose Level 137 Hematocrit 25.4 L Hemoglobin 8.6 L INR International Normalized Ratio 1.07 Lymphocytes # 1.8 Lymphocytes % 28.5 Mean Corpuscular Hemoglobin 32.7 Mean Corpuscular Hemoglobin Concent 33.9 Mean Corpuscular Volume 96.6 Mean Platelet Volume 10.1 Monocytes # 0.6 Monocytes % 9.4 Neutrophils # 3.6 Neutrophils % 56.9 Nucleated Red Blood Cells # 0.0 Nucleated Red Blood Cells % 0.0 Platelet Count 199 Potassium Level 5.0 Prothrombin Time 13.9 Prothrombin Time Ratio 1.1 Red Blood Count 2.63 L Red Cell Distribution Width 13.2 Sodium Level 141 White Blood Count 6.2 Test 11/07/16 08:46 11/07/16 09:01 Bedside Glucose 187 Lab Scanned Report REFERENCE LAB Medications Medications Current Medications Acetaminophen (Tylenol Tab) 650 mg Q4H PRN PO PAIN AND OR ELEVATED TEMP Last administered on 11/07/16 00:23; Admin Dose 650 MG; Start 11/02/16 at 23:00 Hydralazine HCl (Apresoline) 10 mg Q4H PRN IV ELEVATED SYSTOLIC BP Last administered on 11/03/16 12:48; Admin Dose 10 MG; Start 11/02/16 at 23:00 Miscellaneous Information 1 ea NOTE XX ; Start 11/02/16 at 23:30 Glucose (Glutose) 15 gm Q15M PRN PO DECREASED GLUCOSE; Start 11/02/16 at 23:30 Glucose (Glutose) 22.5 gm Q15M PRN PO DECREASED GLUCOSE; Start 11/02/16 at 23:30 Dextrose (D50w Syringe) 25 ml Q15M PRN IV DECREASED GLUCOSE; Start 11/02/16 at 23:30 Dextrose (D50w Syringe) 50 ml Q15M PRN IV DECREASED GLUCOSE; Start 11/02/16 at 23:30 Glucagon (Glucagen) 1 mg Q15M PRN IM DECREASED GLUCOSE; Start 11/02/16 at 23:30 Glucose (Glutose) 15 gm Q15M PRN BUCCAL DECREASED GLUCOSE; Start 11/02/16 at 23: 30 Clonidine (Catapres) 0.1 mg Q6H PRN PO SBP >160; Start 11/03/16 at 13:30 Nifedipine (Procardia Xl) 90 mg DAILY PO Last administered on 11/07/16 08:48; Admin Dose 90 MG; Start 11/03/16 at 14:30 Carvedilol (Coreg) 12.5 mg BID PO Last administered on 11/07/16 08:47; Admin Dose 12.5 MG; Start 11/03/16 at 21:00 Hydralazine HCl (Apresoline) 25 mg Q8 PO Last administered on 11/06/16 21:57; Admin Dose 25 MG; Start 11/03/16 at 22:00 Aspirin (Aspirin) 325 mg DAILY PO Last administered on 11/07/16 08:47; Admin Dose 325 MG; Start 11/03/16 at 17:00 Ascorbic Acid (Vitamin C) 500 mg BID PO Last administered on 11/07/16 08:48; Admin Dose 500 MG; Start 11/04/16 at 21:00 Atorvastatin Calcium (Lipitor) 40 mg HS PO Last administered on 11/06/16 20:14 ; Admin Dose 40 MG; Start 11/04/16 at 21:00 Heparin Sodium (Porcine) (Heparin (5000 Units/0.5 ml)) 5,000 unit BID SC Last administered on 11/07/16 08:50; Admin Dose 5,000 UNIT; Start 11/04/16 at 21:00 Allopurinol (Zyloprim) 100 mg DAILY PO Last administered on 11/07/16 08:48; Admin Dose 100 MG; Start 11/05/16 at 10:00 TIM MELCHOR MD Nov 07, 2016 11:09
--- NOTE | 2016-11-07 13:40 | RADRPT ---
PROCEDURE: Lexiscan myocardial perfusion study CLINICAL INDICATION: 51 -year-old patient complaining of chest pain. TECHNIQUE: Lexiscan 0.4 mg intravenously separate acquisition gated myocardial perfusion SPECT usi ng Tc 99m Myoview 28.4 mCi intravenously at stress and Tc-99m Myoview, 9.4 mCi intravenously at rest was performed using the rest/stress sequence. Poststress Myoview SPECT images were obtained in the supine position. COMPARISON: No prior studies. FINDINGS: Perfusion images reveal no evidence of perfusion defects. Lexiscan post stress gated SPECT images demonstrate no wall motion abnormalities. IMPRESSION: 1. No evidence of perfusion defects. 2. No wall motion abnormalities. 3. The left ventricle ejection fraction at stress is 59%. A call report was made to Dr. Walden at 01:38 p.m. on November 07, 2016. RPTAT: HH .Brigitte Simon MD, Date Time Electronically viewed and signed by .Brigitte Simon MD, on 11/07/2016 13:39 .L/
[2016-11-07] MEDS ORDERED: HYDR-3671 PO (14:11)
[2016-11-07] MEDS ORDERED: CARV12.579 PO (14:11)
[2016-11-07] MEDS ORDERED: ALLO100T PO (14:11)
[2016-11-07] MEDS ORDERED: NIFE90TA PO (14:11)
[2016-11-07] MEDS ORDERED: ASPI325T4 PO (14:11)
--- NOTE | 2016-11-07 14:14 | PDOCDIS ---
Discharge Instructions DIAGNOSIS Discharge Diagnosis: CHF exacerbation, Pleural Effusions CONDITION Patient Condition: Fair HOME CARE INSTRUCTIONS: Special Diet: 1800CAL 2GM NA ACTIVITY: Activity Restrictions: Slowly Increase Activity Rest between Activity Avoid heavy lifting FOLLOW UP/APPOINTMENTS Appointments Follow up with primary care physician in one week. Follow up with pulmonology in one week. Follow up with nephrology in 1 week. follow up with cardiology in one week. OTHER ORDERS: Other Orders: CHF exac - continue with current medications as prescribed Pleural effusions - you had a thoracentesis - if you are having worsening shortness of breath please see your primary care physician as soon as possible. LAUREANO VERONICA MD Nov 07, 2016 14:14
--- NOTE | 2016-11-07 14:53 | DS ---
DATE OF ADMISSION: 11/02/2016 DATE OF DISCHARGE: 11/07/2016 DISCHARGE DIAGNOSES: 1. Congestive heart failure, acute on chronic, compensated. 2. Moderate bilateral pleural effusion, status post thoracentesis. 3. Non-ST elevated myocardial infarction with a troponin leak. 4. Essential hypertension. 5. Acute on chronic kidney disease, with possible stage IV cardiorenal syndrome. 6. Type 2 diabetes. 7. Normocytic anemia, likely chronic kidney disease and iron deficiency related. 8. Hyperuricemia. HOSPITAL COURSE: This is an unfortunate 51-year-old female with a past medical history of CKD, essential hypertension, CHF, who was transferred from [facility] for insurance reasons for further evaluation and treatment. She was admitted to telemetry. Consults the case are Cardiology, Nephrology as well as Pulmonology. IMAGING: Initial imaging done here. Chest x-ray was done on 11/03/2016 showing bibasilar subsegmental atelectasis, small to moderate bilateral pleural effusions. Had a renal ultrasound done showin. A 1.4 cm nonobstructing calculus in the lower pole of the right kidney. 2. Mild left hydronephrosis of intermediately etiology. 3. Incomplete evaluation of urinary bladder due to Diaz catheter with completely decompressed state. A CT chest was done showin. Moderate pleural effusion with partial collapse of the bilateral lower lobes. 2. Nonspecific mild pericardial fluid. A chest x-ray repeat done on 11/06/2016 that showed: 1. resolution of previously seen right pleural effusion status post thoracentesis. No pneumothorax identified. 2. Minimal hazy opacity seen at the left lung base, decreased when compared to prior exam, likely atelectasis and/or small pleural effusion. Ultrasound- guided thoracentesis was done taking 620 mL of yellow fluid and showed successful right chest ultrasound-guided thoracentesis. A nuclear stress test was done showin. No evidence of perfusion defects. 2. No wall motion abnormalities. 3. The left ventricle ejection fraction at stress is 59%. Initial laboratory findings showed a white count of 8.6, currently at 6.2, H and H has been stable. Platelets of 199, H and H was 8.6 and 25.4. Sodium was 141, potassium 4.9, chloride 107, carbon dioxide 22, anion gap of 17, BUN of 59 , creatinine 3.65, glucose 185. Hemoglobin A1c 6.5, calcium 8.2. Iron is 29, TIBC 200 and iron saturation is 15. Ferritin was 213. Troponin was 0.33. BNP was 11,500. Troponin I went to 0.284 and 0.326 and current BUN and creatinine of 93 and 3.56. Coags have been stable. Urine was negative. Serology: Hepatitis A, B and C were negative. HIV was negative. Urine protein was 87. Echocardiogram was done showin. Normal left ventricular cavity size, normal left ventricular wall thickness , mild global left ventricular systolic dysfunction, ejection fraction visually estimated at 45%, stage I diastolic dysfunction. 2. Mitral valve leaflets appear mildly thickened, mild mitral annular calcification, trace to mild mitral regurgitation. 3. Normal appearance and function of the tricuspid valve with trace physiological regurg, normal right ventricular systolic pressure. Otherwise, on the day of discharge, the patient's vital signs were stable, no other acute events. The patient will be walked off at 2 liters of nasal cannula and see if there is any improvement. The patient is doing overall improved. No other acute complaints at this time. I spoke to her about the care plan and agreed with the care plan. DISPOSITION: Home. CONDITION: Stable. DISCHARGE MEDICATIONS: 1. Allopurinol 100 mg p.o. daily. 2. Aspirin 325 mg p.o. daily. 3. Coreg 12.5 mg p.o. b.i.d. 4. Hydralazine 25 mg p.o. q. 5. Nifedipine 90 mg p.o. daily. 6. Vitamin C 500 mg p.o. b.i.d. 7. Fioricet 1 cap p.o. q.6h. 8. Ferrous sulfate 325 mg p.o. b.i.d. 9. Glipizide 5 mg p.o. q.a.c. breakfast. 10. Zofran ODT 4 mg p.o. p.r.n. 11. Sitagliptin 100 mg p.o. daily. FOLLOWUP: The patient will follow up with primary care physician within a week. Will follow with cardiology within a week. Will follow with nephrology in 1 week. Will follow with pulmonology in a week. The patient and consultants were made aware of this and agree with plan. COORDINATION OF DISCHARGE: Greater than 45 minutes. Dictated By: LAUREANO PATTERSON/COLETTE Conf#: [id number] [facility]#: [id number] MTDD
--- NOTE | 2016-11-07 14:56 | ECORPT ---
DATE OF SERVICE: 11/07/2016 REFERRING PHYSICIAN: ____ REASON FOR STRESS TEST: Chest pain. DESCRIPTION OF TEST: The patient was brought in the heart station. Initial blood pressure was 148 /69, she had successful tolerance of injection. There were no ST-T changes. Blood pressure remain ed stable. The imaging portion of the report was dictated separately. Dictated By: LORENA THOMAS MD ML/COLETTE Conf#: [id number] DID#: [id number]
--- NOTE | 2016-11-07 16:44 | CONS ---
DATE OF ADMISSION: 11/02/2016 DATE OF CONSULTATION: 11/07/2016 TYPE OF CONSULTATION: Management of pleural effusion. Thank you, Dr. Gutierrez, for this consultation. HISTORY OF PRESENT ILLNESS: This is a pleasant 51-year-old lady who was admitted for increasing rosalio rtness of breath, orthopnea, PND, cough, congestion, found on admission to have moderate right pleur al effusion status post thoracentesis with pleural fluid studies are suggestive of a transudative ef fusion. She has improved significantly with diuretics and thoracentesis, breathing has stabilized. PAST MEDICAL HISTORY: 1. Urinary retention. 2. Congestive cardiac failure. 3. Chronic kidney disease. 4. History of renal calculi with hydronephrosis. MEDICATIONS: Per chart. ALLERGIES: NONE. SOCIAL HISTORY: Nonsmoker, no alcohol, no history of drug use. FAMILY HISTORY: Noncontributory. SYSTEMS REVIEW: A 12-point review of systems was negative other than that mentioned above. PHYSICAL EXAMINATION: GENERAL: Well-nourished, well-developed lady, comfortable at rest, talking in full and complete sen tences. VITAL SIGNS: Currently afebrile, pulse is 60, blood pressure 159/82, O2 saturation 96% on 2 L nasal cannula. NECK: Supple. No JVD or lymphadenopathy. CARDIAC: S1, S2, no added sounds or murmurs. CHEST: Diminished air entry both lung bases. ABDOMEN: Soft, nontender. No guarding or rebound. EXTREMITIES: No cyanosis, clubbing, edema. NEUROLOGIC: Grossly intact. No focal deficits. DIAGNOSTIC STUDIES: Chest x-ray shows significant improvement in volume on the right following thor acentesis. Cardiac stress test shows no perfusion or wall motion abnormalities with preserved eject ion fraction. IMPRESSION AND PLAN: Pleural fluid, likely secondary to diastolic dysfunction. Cytologies pending at time of this dictation. Clinically, she has improved and [facility] Needs repeat chest x-ray in 2 to 3 weeks' time and follow up with primary care physician for bot h pleural fluid studies and cytology. Dictated By: NIALL AMARO/NTS Conf#: [id number] DID#: [id number]
== END 2016-11-07 19:59 | disposition home or self-care (01) | DRG 280 ==
LOC: MS4 22:06
PROVIDERS: ADMIT Family Medicine; ATTEND Family Medicine
PROC: 0W993ZZ Drainage of Right Pleural Cavity, Percutaneous Approach (ICD-10-PCS; principal; 2016-11-06)
DX: I21.4 Non-ST elevation (NSTEMI) myocardial infarction (principal); I50.33 Acute on chronic diastolic (congestive) heart failure; J90 Pleural effusion, not elsewhere classified; N18.4 Chronic kidney disease, stage 4 (severe); I12.9 Hypertensive chronic kidney disease with stage 1 through stage 4 chronic kidney disease, or unspecified chronic kidney disease; D64.9 Anemia, unspecified; E11.9 Type 2 diabetes mellitus without complications; N13.30 Unspecified hydronephrosis; E78.5 Hyperlipidemia, unspecified; E11.21 Type 2 diabetes mellitus with diabetic nephropathy
CPT/HCPCS: 32555; 36600; 71010; 71020; 71250; 76775; 78452; 80048; 80053; 80061; 82042; 82550; 82553; 82728; 82803; 82945; 82962; 83036; 83540; 83615; 83880; 84155; 84157; 84300; 84443; 84484; 84560; 85025; 85610; 85730; 86703; 86704; 86709; 86803; 87340; 89050; 89190; 93005; 93017; 93306; J1940; A9500; A9505; J0360; J1644; J1815; J2785; J2916; P9047

== ENCOUNTER 2017-05-08 18:12 | Inpatient (IN) | END 2017-05-16 17:00 | disposition home or self-care (01) | DRG 674 | DX: N17.9 Acute kidney failure, unspecified (principal); N39.0 Urinary tract infection, site not specified; E11.21 Type 2 diabetes mellitus with diabetic nephropathy; N13.30 Unspecified hydronephrosis; N18.4 Chronic kidney disease, stage 4 (severe); E11.22 Type 2 diabetes mellitus with diabetic chronic kidney disease; I12.9 Hypertensive chronic kidney disease with stage 1 through stage 4 chronic kidney disease, or unspecified chronic kidney disease; R33.9 Retention of urine, unspecified; D64.9 Anemia, unspecified; G43.909 Migraine, unspecified, not intractable, without status migrainosus; N20.0 Calculus of kidney; E79.0 Hyperuricemia without signs of inflammatory arthritis and tophaceous disease; B96.20 Unspecified Escherichia coli [E. coli] as the cause of diseases classified elsewhere; E87.5 Hyperkalemia ==